=== PATIENT | male | born 1980 | race Caucasian/White ===

== ENCOUNTER 2016-05-18 02:35 | Emergency (ER) | payer OTHER ==
[~2016-05-18] VITALS: Ht 180.3 cm; Wt 157.9 kg
[~2016-05-18 02:35] MED LIST: ANCEF IV; AVELOX400 MG PO; BACTRIM DS 800/1 TAB PO; CRESTOR; FLAGYL500 M1 PO; GLUCOPHAGE1000 MG PO; GLUCOTROL5 MG PO; IBUPROFEN600 M1 PO; LEVEMIR100 U/ML SUBQ; MECLIZINE25 M3 PO; METFORMIN ER500 MG PO; METFORMIN1000 MG PO; METFORMIN500 MG PO; NORCO 10/325 MG1 TAB PO; NORCO 325 MG-51 TAB PO; NORCO 5/325 MG1 TAB PO; PRILOSEC40 MG PO; ULTRAM50 MG PO; VANCOCIN 11000 MG/20 IV; VICODIN ES 7501 TA1 PO; ZESTRIL10 MG PO; ZOCOR20 MG PO
[2016-05-18 02:53] VITALS: BP 125/83
--- NOTE | 2016-05-18 03:00 | NUR ---
PT TAKEN TO BED 5
--- NOTE | 2016-05-18 03:07 | NUR ---
36 Y/O HERE C/O R KNEE PAIN THAT BECAME WORSE X 4 DAYS. PER PT HE HAS HAD CHRONIC PAIN SINCE December, S/P FALL. ER AWARED, NO S/S OF DISTRESS AT THIS TIME.
--- NOTE | 2016-05-18 03:11 | NUR ---
Dr. Ireland evaluating patient at bedside.
[2016-05-18] MEDS ORDERED: HYDROcodone/APAP 5/325 MG 1 TAB TAB PO ONE (03:15)
[2016-05-18] MEDS ORDERED: KETOROLAC 30 MG/ML VIAL IM ONE (03:15)
--- NOTE | 2016-05-18 03:32 | NUR ---
X-Ray at bedside.
[2016-05-18 03:52] VITALS: BP 125/83
--- NOTE | 2016-05-18 03:52 | NUR ---
Patient discharged with v/s stable. Written and verbal after care instructions given and explained. Patient alert, oriented and verbalized understanding of instructions. Ambulatory WITH ASSISTIVE DEVICE, with steady gait. All questions addressed prior to discharge. ID band removed. Patient advised to follow up with PMD OR RETURN TO ER IF CONDITION WORSENS. Rx of NORCO, AND NAPROSYN given. Patient educated on indication of medication including possible reaction and side effects. Opportunity to ask questions provided and answered.
[2016-09-03] MEDS ORDERED: FLAGYL250 M1 PO (17:37)
[2016-09-03] MEDS ORDERED: CIPRO500 M1 PO (17:37)
== END 2016-05-18 03:52 | disposition home or self-care (01) ==
LOC: MED 02:35
DX: M25.561 Pain in right knee (principal); G89.29 Other chronic pain; J45.909 Unspecified asthma, uncomplicated; E11.9 Type 2 diabetes mellitus without complications; I10 Essential (primary) hypertension; Z88.0 Allergy status to penicillin
CPT/HCPCS: 73560; 96372; 99284; J1885; Q0092

== ENCOUNTER 2016-08-06 09:17 | Emergency (ER) | payer OTHER ==
[~2016-08-06] VITALS: Ht 177.8 cm; Wt 160.1 kg
[2016-08-06 09:28] VITALS: BP 141/85
--- NOTE | 2016-08-06 09:37 | NUR ---
Patient ambulated to bed 7 at this time.
--- NOTE | 2016-08-06 09:40 | NUR ---
36M BIB FAMILY C/O SHARP PAIN TO LEFT 3RD DIGIT, RADIATES TO LEFT HAND, 01/01 X 4 DAYS; PT STATES FINGER STARTED W/ INGROWN NAIL; DENIES TRAUMA TO SITE; SWELLING/REDNESS NOTED TO LEFT 3RD DIGIT AT THIS TIME; LEFT CAP REFILL < 2 SECONDS, LEFT RADIAL PULSE PALPABLE, NO LOSS OF SENSATION TO LEFT HAND AT THIS TIME; PT C/O NAUSEA, BUT DENIES V/D AT THIS TIME; ABDOMEN SOFT, NON-TENDER, ACTIVE BOWEL SOUNDS X 4 QUADRANTS; PT A&OX4, PERRLA, BL LUNG SOUNDS CLEAR, RR EVEN/UNLABORED, SKIN IS WARM/DRY/INTACT AT THIS TIME; STEADY GAIT; HX: DM, HTN, ANEMIA,NEUROPATHY, ARTHRITIS, DIVERTICULOSIS; PT RESTING IN BED W/ HOB ELEVATED AND IN LOWEST POSITION; POSITIONED FOR COMFORT; ER MD MADE AWARE OF STATUS. WILL CONTINUE TO MONITOR.
[2016-08-06] MEDS ORDERED: LIDOCAINE 1% 500 MG/50 ML VIAL INJ ONE (10:20)
[2016-08-06] MEDS ORDERED: HYDROcodone/APAP 5/325 MG 1 TAB TAB PO ONE (11:35)
[2016-08-06] MEDS ORDERED: IBUPROFEN 600 MG TAB PO ONE (11:35)
[2016-08-06] MEDS ORDERED: NEOMYCIN/POLYMYXIN/BACITRACIN 0.9 GM/1 PKT TP ONE (11:38)
[2016-08-06] MEDS ORDERED: CLINDAMYCIN 150 MG CAP PO ONE (11:50)
[2016-08-06] MEDS ORDERED: CEPHALEXIN 500 MG CAP PO ONE (11:50)
--- NOTE | 2016-08-06 12:50 | NUR ---
Patient discharged with v/s stable. Written and verbal after care instructions given and explained. Patient alert, oriented and verbalized understanding of instructions. Ambulatory with steady gait. All questions addressed prior to discharge. ID band removed. Patient advised to follow up with PMD. Rx of BACTRIM DS 800/160MG, NORCO 5/325MG, KEFLEX 500MG given. Patient educated on indication of medication including possible reaction and side effects. Opportunity to ask questions provided and answered.
[2016-08-06 12:51] VITALS: BP 139/82
[2016-09-03] MEDS ORDERED: CIPRO500 M1 PO (17:37)
[2016-09-03] MEDS ORDERED: FLAGYL250 M1 PO (17:37)
== END 2016-08-06 12:50 | disposition home or self-care (01) ==
LOC: MED 09:17
DX: L02.512 Cutaneous abscess of left hand (principal); E11.65 Type 2 diabetes mellitus with hyperglycemia; E66.01 Morbid (severe) obesity due to excess calories; I10 Essential (primary) hypertension; D64.9 Anemia, unspecified; M06.9 Rheumatoid arthritis, unspecified; Z88.0 Allergy status to penicillin; Z68.43 Body mass index [BMI] 50.0-59.9, adult
CPT/HCPCS: 10060; 82948; 99284; J2001

== ENCOUNTER 2016-08-31 23:36 | Inpatient (IN) | payer OTHER ==
[~2016-08-31] VITALS: Ht 180.3 cm; Wt 156.9 kg
[~2016-08-31 23:36] MED LIST changes: -ANCEF IV; -AVELOX400 MG PO; -BACTRIM DS 800/1 TAB PO; -CRESTOR; -FLAGYL500 M1 PO; -GLUCOPHAGE1000 MG PO; -GLUCOTROL5 MG PO; -IBUPROFEN600 M1 PO; -LEVEMIR100 U/ML SUBQ; +LISI10TA11 PO; -MECLIZINE25 M3 PO; +METF100028 PO; -METFORMIN ER500 MG PO; -METFORMIN1000 MG PO; -METFORMIN500 MG PO; -NORCO 10/325 MG1 TAB PO; -NORCO 325 MG-51 TAB PO; -NORCO 5/325 MG1 TAB PO; +OMEP40EC1 PO; -PRILOSEC40 MG PO; +TRAM50TA94 PO; -ULTRAM50 MG PO; -VANCOCIN 11000 MG/20 IV; -VICODIN ES 7501 TA1 PO; -ZESTRIL10 MG PO; -ZOCOR20 MG PO
[2016-08-31 23:51] VITALS: BP 139/91
--- NOTE | 2016-09-01 00:01 | NUR ---
BIB WHEELCHAIR TO ER BED 5
--- NOTE | 2016-09-01 00:08 | NUR ---
36Y/M PT. BIB FAMILY TO ED WITH C/O ABDOMINAL APIN X 2 DAYS. PT. STATES PAIN STARTED YESTERDAY WITH N/V/D, MULTIPLE TIME AND WEAKNESS. NO MEDICAL HX. AAO X4, AMBULATORY WITH W/C ASSIST. RESPIRATIONS ROOM AIR, EVEN AND UNLABORED. SKIN WARM AND DRY. BILATERAL LUNG CLEAR. C/O ABDOMINAL PAIN 12/02. N/V/D AT THIS TIME. VSS, ER MADE AWARE OF PT. STATUS. Addendum: 09/01/16 at 0459 by MEDSP FOR CLARIFICATION; HX. DM, HTN
[2016-09-01] MEDS ORDERED: NACL 0.9% 1,000 ML IV ONE ×2 (00:38→01:40)
[2016-09-01] MEDS ORDERED: DICYCLOMINE 20 MG/2 ML VIAL IM ONE (00:40)
[2016-09-01] MEDS ORDERED: ONDANSETRON 4 MG/2 ML VIAL IVP ONE (00:40)
[2016-09-01] MEDS ORDERED: MORPHINE SULFATE 4 MG/ML SYR IVP ONE ×3 (00:40→02:50)
[2016-09-01 01:05] LABS: CARBON DIOXIDE 27.9 mmol/L (21-32); CREATININE 0.8 mg/dL (0.6-1.3); POTASSIUM 3.9 mmol/L (3.5-5.1)
[2016-09-01 01:08] LABS: ALBUMIN 3.6 g/dL (3.4-5.0); TOTAL BILIRUBIN 0.6 mg/dL (0.0-1.0); TOTAL PROTEIN, SERUM 8.7 g/dL (6.4-8.2)
[2016-09-01 01:20] LABS: HEMATOCRIT 45.1 % (36-52); MEAN CORPUSCULAR HEMOGLOBIN 28 pg (27-31); MEAN CORPUSCULAR HGB CONC 33 g/dL (33-37); MEAN CORPUSCULAR VOLUME 85 fL (80-94); PLATELET COUNT (AUTO) 188 K/uL (140-450); RED BLOOD CELL COUNT(AUTO) 5.29 MIL/uL (4.20-6.10); RED CELL DISTRIBUTION WIDTH 11.9 % (11.6-13.7); WHITE BLOOD COUNT (AUTO) 11.2 K/uL (4.8-10.8)
[2016-09-01 01:26] LABS: BAND % (MANUAL) 2 % (0-8); EOSINOPHILS % (MANUAL) 1 % (0-4); LYMPHOCYTES % (MANUAL) 12 % (20-46); MONOCYTES % (MANUAL) 4 % (5-12); NEUTROPHILS % (MANUAL) 81 (43-65)
--- NOTE | 2016-09-01 02:50 | NUR ---
TAKE PT. TO CT
--- NOTE | 2016-09-01 03:00 | NUR ---
PT. BACK FROM CT
--- NOTE | 2016-09-01 03:07 | NUR ---
Patient appears to be resting comfortably in bed. Vital Signs within normal limits. Respirations even and unlabored.
[2016-09-01] MEDS ORDERED: HYDROmorphone 1 MG/ML AMP IVP ONE (04:15)
[2016-09-01] MEDS ORDERED: metroNIDAZOLE 500 MG/NS PREMIX 100 ML IV ONE (04:45)
[2016-09-01] MEDS ORDERED: LEVOFLOXACIN 750 MG/D5W PREMIX 150 ML IV ONE (04:45)
--- NOTE | 2016-09-01 04:57 | NUR ---
Patient appears to be resting comfortably in bed. Vital Signs within normal limits. Respirations even and unlabored.
[2016-09-01] MEDS ORDERED: LORazepam 2 MG/ML VIAL IVP PRN (05:10)
[2016-09-01] MEDS ORDERED: MORPHINE SULFATE 2 MG/ML SYR IVP PRN (05:10)
[2016-09-01] MEDS ORDERED: ALBUTEROL 0.083% 2.5 MG/3 ML NEBU IH PRN (05:10)
[2016-09-01] MEDS ORDERED: ACETAMINOPHEN 325 MG TAB PO PRN (05:10)
[2016-09-01] MEDS ORDERED: ONDANSETRON 4 MG/2 ML VIAL IVP PRN (05:10)
[2016-09-01] MEDS ORDERED: HYDROcodone/APAP 5/325 MG 1 TAB TAB PO PRN (05:10)
--- NOTE | 2016-09-01 05:33 | NUR ---
Patient will be admitted to care of . Admited to MED/SURG. Will go to [id number]. Belongings list completed. Report to VLADIMIR MARTINEZ.
--- NOTE | 2016-09-01 05:45 | NUR ---
PATIENT ADMITTED TO THE UNIT FROM ED, PATIENT ARRIVED VIA WHEELCHAIR, PATIENT ABLE TO AMBULATE TO BED, PATIENT IS AAOX4 ON ROOM AIR, NO SOB OR SIGN OF DISTRESS, IV TO LEFT AC PATENT AND INTACT, SKIN INTACT WITH DISCOLORATION NOTED TO LOWER ABDOMINAL FOLD. PATIENT STATES HE IS HAVING ABDOMINAL PAIN 10/10 WILL MEDICATE PER MD ORDER. ORIENTED PATIENT TO ROOM AND CALL LIGHT, DISCUSSED PLAN OF CARE WITH PATIENT, PATIENT VERBALIZED UNDERSTANDING, CALL LIGHT WITHIN REACH, SAFETY MEASURES CHECKED, WILL CONTINUE TO MONITOR.
[2016-09-01] MEDS ORDERED: PIPER/TAZO 3.375GM/D5W PREMIX 50 ML IV SCH (06:00)
[2016-09-01] MEDS: NACL 0.9% 1,000 ML IV SCH ×2 (06:07→15:08)
[2016-09-01 06:11] VITALS: BP 126/79
--- NOTE | 2016-09-01 06:49 | NUR ---
PATIENT HAS BEEN SCREENED AND CATEGORIZED HIGH NUTRITION RISK. PATIENT WILL BE SEEN WITHIN 1-2 DAYS OF ADMISSION. 09/01/16-09/02/16 ISA ESQUIVEL MS, RDN
--- NOTE | 2016-09-01 07:30 | NUR ---
RECEIVED PT REPORT AT BEDSIDE FROM NIGHT NURSE. PT IS AAOX4 AND DENIES PAIN. PT HAS A NOTED IV SITE ON THE L AC. PT SKIN IS INTACT WITH NOTED SKIN DISCOLORATION ON THE ABD FOLD. PT SHOWS NO S/S OF DISTRESS NOTED ON ROOM AIR. PT BED IS LOWERED WITH CALL LIGHT WITHIN REACH. PT VERBALIZED UNDERSTANDING OF POC FOR TODAY. WILL CONTINUE TO MONITOR.
--- NOTE | 2016-09-01 07:33 | NUR ---
ENDORSED PATIENT TO DAY RN AT BEDSIDE, IV LEVAQUIN STILL INFUSING, ZOSYN WILL BE ADMINISTERED LATE, DAY NURSE AWARE, PATIENT IN STABLE CONDITION.
--- NOTE | 2016-09-01 07:50 | NUR ---
PT STATES HE FEEL HOT. GAVE PT ICE PACK AND PT HAS FAN AT BEDSIDE.
[2016-09-01 08:00] VITALS: BP 139/86
--- NOTE | 2016-09-01 08:10 | NUR ---
SPOKE WITH DR BARRIENTOS REGARDING PT NAUSEA, PAIN, AND ANTIBIOTIC MEDICATION. PT STATES NAUSEA MEDICATION ZOFRAN DOES NOT HELP HIM AND HIS PAIN MEDICATION MORPHINE DID NOT HELP HIM. ALSO, PATIENT IS ALLERGIC TO PENICILLINS THEREFORE COULD NOT GIVE SCHEDULED ZOSYN. DR. BARRIENTOS GAVE ORDERS TO GIVE PHENERGAN 25 MG IV Q6H FOR NAUSEA/VOMITING, DILAUDID .5 MG Q3H PRN FOR SEVER PAIN, LEVAQUIN 750 MG Q DAILY, AND FLAGYL 500 MG IV Q8H. WILL PLACE ORDERS.
[2016-09-01] MEDS: PROMETHAZINE 25 MG/ML VIAL IVP PRN ×2 (10:00→18:26)
[2016-09-01] MEDS: HYDROmorphone 1 MG/ML AMP IVP PRN ×4 (10:00→22:30)
--- NOTE | 2016-09-01 10:00 | NUR ---
ADMINISTERED SCHEDULED MEDICATIONS. PT C/O PAIN AND NAUSEA. ADMINISTERED PRN PAIN AND NAUSEA MEDICATION. PT TOLERATED WELL. PT SHOWS NO S/S OF DISTRESS ON ROOM AIR. PT BED IS LOWERED WITH CALL LIGHT WITHIN REACH.
[2016-09-01] MEDS: ENOXAPARIN 40 MG/0.4 ML SYR SUBQ SCH (10:11)
--- NOTE | 2016-09-01 10:30 | NUR ---
RECEIVED PT IN STABLE CONDITION FROM AM NURSE. AWAKE,ALERT AND ORIENTED X4. MED SURG PT. NO C/O ANY PAIN AT THIS TIME. WITH IVF INFUSING WELL ON THE LT AC#18. CLEAR AND PATENT. AMBULATORY TO BATHROOM. PLAN OF CARE DISCUSSED AND VERBALIZED UNDERSTANDING. MADE AWARE OF NEED FOR STOOL SPECIMEN . VERBALIZED UNDERSTANDING. CALL LIGHT URINAL WITHIN EASY REACH. WILL CONTINUE TO MONITOR. Addendum: 09/01/16 at 2004 by Sona Balderas RN CANCEL ABOVE NOTES. CAREGIVER MISTAKE.
--- NOTE | 2016-09-01 10:34 | NUR ---
SPOKE WITH DR BARRIENTOS RECOMMENDING TO ORDER ACCU CHECKS DUE TO PT HISTORY OF DM. MD ORDERED ACCU CHECKS QACHS AND LOW DOSE INSULIN SLIDING SCALE. MD ORDERED TO CHANGE DIET TO CLEAR LIQUIDS DUE TO PT NAUSEA. WILL PLACE ORDERS PER MD.
--- NOTE | 2016-09-01 10:46 | NUR ---
09/01/16 INITIAL ASSESSMENT COMPLETED PLEASE REFER TO NUTRITION ASSESSMENT UNDER CARE ACTIVITY FOR ESTIMATED NUTRITIONAL NEEDS. RD RECOMMENDATIONS: 1. RECOMMEND CCHO 60 GM DIET D/T ELEVATED BG AND HX DM. 2. RD WILL F/U 3-5 DAYS; MODERATE RISK. ISA ESQUIVEL MS, RDN
[2016-09-01] MEDS: BLOOD GLUCOSE MONITORING 1 DEV DEV FS SCH ×3 (11:30→20:23)
--- NOTE | 2016-09-01 12:45 | NUR ---
PT IN BED SLEEPING AND SHOWS NO S/S OF DISTRESS ON ROOM AIR.
[2016-09-01] MEDS: metroNIDAZOLE 500 MG/NS PREMIX 100 ML IV SCH ×2 (13:30→20:29)
[2016-09-01] MEDS: INSULIN LISPRO SLIDING SCALE 100 UNITS/ML VIAL SUBQ PRN ×3 (13:35→20:27)
--- NOTE | 2016-09-01 15:00 | NUR ---
PT C/O OF PAIN 8/10. 10 BEING THE WORST PAIN. ADMINISTERED PRN PAIN MEDICATION. PT FELT WARM TO THE TOUCH. PT TEMPERATURE IS 100.4 F. WILL ADMINISTER TYLENOL 650MG PO FOR FEVER OF 100.4. ALSO PROVIDED COOLING MEASURES TO PT. WILL CONTINUE TO MONITOR.
[2016-09-01 15:08] VITALS: BP 131/93
[2016-09-01 16:00] VITALS: BP 141/83
--- NOTE | 2016-09-01 16:15 | NUR ---
SENT STOOL CULTURE TO LAB. PT NEEDS HAVE BEEN MET. PT IS IN ROOM NOW SLEEPING WITH NO S/S OF DISTRESS ON ROOM AIR.
--- NOTE | 2016-09-01 17:40 | NUR ---
PT IN BED RESTING AND SHOWS NO S/S OF DISTRESS ON ROOM AIR.
--- NOTE | 2016-09-01 18:30 | NUR ---
PT IS IN BED RESTING WATCHING TV WITH NO S/S OF DISTRESS ON ROOM AIR. PT IS AAOX4 TO PERSON, PLACE, DATE, AND SITUATION. PT C/O PAIN AND NAUSEA. ADMINISTERED PRN PAIN MEDICATION AND NAUSEA MEDICATION. PT TOLERATED WELL. IV ON THE R AC IS PATENT AND INTACT WITH IVF'S RUNNING. PT NEEDS HAVE BEEN MET. PT BED IS LOWERED WITH CALL LIGHT WITHIN REACH. WILL ENDORSE TO THE NIGHT NURSE.
--- NOTE | 2016-09-01 18:34 | NUR ---
PT IS IN BED RESTING WITH NO S/S OF DISTRESS ON ROOM AIR. PT IS AAOX3 TO PERSON, PLACE, AND DATE. PT IS ASKING FOR PAIN MEDICATION HOWEVER PT IS AWARE OF PRN PAIN MEDICATION SCHEDULE NOT AVAILABLE. PT AWARE PRN PAIN MEDICATION PERCOCET 5/325 MG WILL AVAILABLE AT 20:12. IV ON THE H IS PATENT AND INTACT. IV ON THE ANTERIOR CHEST IS SALINE LOCKED. DRESSING WAS CHANGED ON THE LEFT MEDIAL ANKLE TODAY AFTER EXCISIONAL DEBRIDEMENT. DRESSING IS CLEAN DRY AND INTACT. PT BED IS LOWERED WITH CALL LIGHT WITHIN REACH. WILL ENDORSE TO THE NIGHT NURSE. Addendum: 09/01/16 at 1840 by Desiree Mendoza RN WRONG PATIENT
--- NOTE | 2016-09-01 19:15 | NUR ---
GAVE REPORT TO NIGHT NURSE. PT ENDORSED IN STABLE CONDITION.
--- NOTE | 2016-09-01 19:30 | NUR ---
RECEIVED PT IN STABLE CONDITION FROM AM NURSE. AWAKE,ALERT AND ORIENTED X4. MED SURG PT. NO C/O ANY PAIN AT THIS TIME. WITH IVF INFUSING WELL ON THE LT AC#18. CLEAR AND PATENT. AMBULATORY TO BATHROOM. PLAN OF CARE DISCUSSED AND VERBALIZED UNDERSTANDING. MADE AWARE OF NEED FOR STOOL SPECIMEN . VERBALIZED UNDERSTANDING. CALL LIGHT URINAL WITHIN EASY REACH. WILL CONTINUE TO MONITOR
--- NOTE | 2016-09-01 20:27 | NUR ---
BLOOD SUGAR WAS CHECKED RESULT 205. INSULIN COVERAGE GIVNE SUBQ. PROVIDED WITH SOME APPLE JUICE. WILL COTINUE TO MONITOR.
--- NOTE | 2016-09-01 21:15 | NUR ---
MADE ROUNDS . PT IS SLEEPING WELL AT THSI TIME. NO S/S OF ANY DISCOMFORT NOTED.
--- NOTE | 2016-09-01 22:30 | NUR ---
AWAKE AND C/O PAIN .MEDICATED ORDERED. WILL CONTINUE TO MONITOR.
--- NOTE | 2016-09-01 23:30 | NUR ---
HAD A SCANTY SOFT BROWN STOOL. NOT DIARRHEA. STILL UNABLE TO COLLECT STOOL FOR S CIFF
[2016-09-01 23:50] VITALS: BP 151/85
[2016-09-02] MEDS: NACL 0.9% 1,000 ML IV SCH ×5 (01:08→23:15)
--- NOTE | 2016-09-02 01:30 | NUR ---
MADE ROUNDS. PT SLEEPING. NO S/S OF ANY DISCOMFORT NOR PAIN NOTED.
[2016-09-02] MEDS: HYDROmorphone 1 MG/ML AMP IVP PRN ×7 (02:51→23:51)
--- NOTE | 2016-09-02 03:30 | NUR ---
ASLEEP. NO S/S OF ANY DISCOMFORT NOTED. WILL CONTINUE TO MONITOR.
[2016-09-02] MEDS: metroNIDAZOLE 500 MG/NS PREMIX 100 ML IV SCH ×3 (04:30→20:25)
[2016-09-02] MEDS: BLOOD GLUCOSE MONITORING 1 DEV DEV FS SCH ×4 (06:08→20:30)
[2016-09-02] MEDS: INSULIN LISPRO SLIDING SCALE 100 UNITS/ML VIAL SUBQ PRN ×4 (06:09→20:34)
[2016-09-02 06:51] LABS: BASOPHILS # (AUTO) 0.3 K/uL (0.00-0.22); EOSINOPHILS # (AUTO) 0.2 K/uL (0-0.4); EOSINOPHILS % (AUTO) 2.2 % (0.0-4.0); HEMATOCRIT 40.3 % (36-52); HEMOGLOBIN 13.6 g/dL (12.0-18.0); LYMPHOCYTES # (AUTO) 2.1 K/uL (2.0-11.5); LYMPHOCYTES % (AUTO) 27.9 % (20.5-51.1); MEAN CORPUSCULAR HEMOGLOBIN 29 pg (27-31); MEAN CORPUSCULAR HGB CONC 34 g/dL (33-37); MEAN CORPUSCULAR VOLUME 84 fL (80-94); MONOCYTES # (AUTO) 0.8 K/uL (0.8-1.0); MONOCYTES % (AUTO) 10.4 % (1.7-9.3); NEUTROPHILS # (AUTO) 4.2 K/uL (1.8-7.7); NEUTROPHILS % (AUTO) 55.5 % (42.2-75.2); PLATELET COUNT (AUTO) 172 K/uL (140-450); RED BLOOD CELL COUNT(AUTO) 4.78 MIL/uL (4.20-6.10); RED CELL DISTRIBUTION WIDTH 11.8 % (11.6-13.7); WHITE BLOOD COUNT (AUTO) 7.6 K/uL (4.8-10.8)
[2016-09-02 07:08] LABS: ANION GAP 9.2 (8-16); CALCIUM 8.3 mg/dL (8.5-10.1); CARBON DIOXIDE 29.1 mmol/L (21-32); CREATININE 0.8 mg/dL (0.6-1.3); MAGNESIUM 1.7 mg/dL (1.8-2.4); POTASSIUM 3.3 mmol/L (3.5-5.1); TOTAL BILIRUBIN 0.4 mg/dL (0.0-1.0); TOTAL PROTEIN, SERUM 7.3 g/dL (6.4-8.2)
--- NOTE | 2016-09-02 07:15 | NUR ---
ENDORSED PT IN STABLE CONDITION TO AM NURSE.
[2016-09-02 07:58] LABS: MAGNESIUM 1.6 mg/dL (1.8-2.4); PHOSPHORUS 2.9 mg/dL (2.5-4.9)
[2016-09-02 08:00] VITALS: BP 129/71
[2016-09-02] MEDS: LEVOFLOXACIN 750 MG/D5W PREMIX 150 ML IV SCH (09:04)
[2016-09-02] MEDS: ENOXAPARIN 40 MG/0.4 ML SYR SUBQ SCH (09:07)
--- NOTE | 2016-09-02 09:09 | NUR ---
DUE MEDICATIONS GIVEN. PT TOLERATED WELL. PT C/O ABD 11/01 WILL MEDICATE PER MD ORDERS. ALL NEEDS. CALL LIGHT WITHIN REACH. WILL CONTINUE TO MONITOR.
[2016-09-02] MEDS ORDERED: POTASSIUM CHLORIDE 10 MEQ TABER PO SCH (10:32)
[2016-09-02] MEDS ORDERED: MAG SULF 2000 MG/WATER PREMIX 50 ML IV SCH (11:00)
--- NOTE | 2016-09-02 11:38 | NUR ---
DUE MEDICATIONS GIVEN, PT CURRENTLY RESTING IN BED. ALL NEEDS MET. CALL LIGHT WITHIN REACH. WILL CONTINUE TO MONITOR.
[2016-09-02 16:00] VITALS: BP 139/92
--- NOTE | 2016-09-02 16:45 | NUR ---
PT C/O OF PAIN, WILL MEDICATE PER MD ORDERS. ALL NEEDS MET. CALL LIGHT WITHIN REACH. WILL CONTINUE TO MONITOR. FAMILY AT BEDSIDE.
--- NOTE | 2016-09-02 19:25 | NUR ---
ENDORSED PLAN OF CARE TO [facility] NURSE, PT IN STABLE CONDITION.
--- NOTE | 2016-09-02 19:30 | NUR ---
RECEIVED PT IN STABLE CONDITION FROM AM NURSE. AWAKE,ALERT AND ORIENTED X4. MED SURG PT. WITH NO C/O PAIN AT THIS TIME. DENIES ANY DIARRHEA . FAMILY MEMBERS AT BEDSIDE. AMBULATORY. WITH IVF INFUSING WELL ON THE LT AC #18. CLEAR AND PATENT. CARE DISCUSSED AND VERBALIZED UNDERSTANDING. BED ON LOW [POSITION, SIDE RAILS UP X2. CALL LIGHT PLACED WITHIN EASY REACH. WILL CONTINUE TO MONITOR.
--- NOTE | 2016-09-02 20:34 | NUR ---
BLOOD SUGAR WAS CHECKED RESULT 189. INSULIN COVERAGE GIVEN SUBQ. PROVIDED WITH APPLE JUICE.
[2016-09-02] MEDS ORDERED: TEMAZEPAM 15 MG CAP PO SCH (21:00)
--- NOTE | 2016-09-02 22:00 | NUR ---
STILL AWAKE. AMBULATING ON THE HALLWAY. NO S/S FO ANY DISCOMFORT NOTED.
[2016-09-02 23:44] VITALS: BP 150/75
--- NOTE | 2016-09-03 01:00 | NUR ---
IV ACCESS ON THE LT AC INFILTRATED. DISCONTINUE. STARTED A NEW IV ACCESS ON THE RT HAND #22. CLEAR AND PATENT. IVF INFUSING WELL ON THIS NEW IV SITE.
--- NOTE | 2016-09-03 02:30 | NUR ---
SLEEPING AT THIS TIME. NO S/S FO PEEWEE DISCOMFORT NOTED. WILL CONTINUE TO MONITOR.
[2016-09-03] MEDS: metroNIDAZOLE 500 MG/NS PREMIX 100 ML IV SCH ×2 (04:27→12:01)
--- NOTE | 2016-09-03 04:46 | NUR ---
SLEEPING AT THIS TIME. NO S/S OF ANY DISCOMFORT NOTED.
[2016-09-03] MEDS: BLOOD GLUCOSE MONITORING 1 DEV DEV FS SCH ×4 (06:08→15:59)
[2016-09-03 06:12] LABS: BASOPHILS # (AUTO) 0.1 K/uL (0.00-0.22); BASOPHILS % (AUTO) 2.2 % (0.0-2.0); EOSINOPHILS # (AUTO) 0.2 K/uL (0-0.4); EOSINOPHILS % (AUTO) 2.5 % (0.0-4.0); HEMATOCRIT 43.1 % (36-52); HEMOGLOBIN 14.3 g/dL (12.0-18.0); LYMPHOCYTES # (AUTO) 1.6 K/uL (2.0-11.5); LYMPHOCYTES % (AUTO) 23.9 % (20.5-51.1); MEAN CORPUSCULAR HEMOGLOBIN 28 pg (27-31); MEAN CORPUSCULAR HGB CONC 33 g/dL (33-37); MEAN CORPUSCULAR VOLUME 84 fL (80-94); MONOCYTES # (AUTO) 0.6 K/uL (0.8-1.0); MONOCYTES % (AUTO) 8.5 % (1.7-9.3); NEUTROPHILS # (AUTO) 4.3 K/uL (1.8-7.7); NEUTROPHILS % (AUTO) 62.9 % (42.2-75.2); PLATELET COUNT (AUTO) 199 K/uL (140-450); RED BLOOD CELL COUNT(AUTO) 5.11 MIL/uL (4.20-6.10); RED CELL DISTRIBUTION WIDTH 11.9 % (11.6-13.7); WHITE BLOOD COUNT (AUTO) 6.8 K/uL (4.8-10.8)
--- NOTE | 2016-09-03 06:20 | NUR ---
BLOOD SUGAR CHECKED RESULT 115. Addendum: 09/03/16 at 0726 by Sona Balderas RN CANCEL ABOVE NOTES. WRONG PT.
[2016-09-03] MEDS: INSULIN LISPRO SLIDING SCALE 100 UNITS/ML VIAL SUBQ PRN ×4 (06:40→16:02)
--- NOTE | 2016-09-03 06:40 | NUR ---
BLOOD SUGAR THIS AM 161. INSULIN COVERAGE GIVEN SUBQ.
[2016-09-03 06:45] LABS: ANION GAP 11.8 (8-16); CALCIUM 8.6 mg/dL (8.5-10.1); CARBON DIOXIDE 28.3 mmol/L (21-32); CREATININE 0.8 mg/dL (0.6-1.3); POTASSIUM 3.1 mmol/L (3.5-5.1)
[2016-09-03 06:49] LABS: MAGNESIUM 1.8 mg/dL (1.8-2.4); PHOSPHORUS 3.9 mg/dL (2.5-4.9)
[2016-09-03] MEDS: NACL 0.9% 1,000 ML IV SCH ×2 (07:08→16:20)
--- NOTE | 2016-09-03 07:27 | NUR ---
ENDORSED PT IN STABLE CONDITION TO AM NURSE.
--- NOTE | 2016-09-03 07:28 | NUR ---
PT ALERT AND ORIENTED X4. BREATHING EVENLY AND UNLABORED. NO SIGNS OF ACUTE DISTRESS. SKIN IS WARM AND DRY. NO EPISODES OF ANY NAUSEA OR VOMITING. ABLE TO VOID INDEPENDENTLY. NO C/O ANY PAIN OR DISCOMFORT AT THIS TIME. ALL NEEDS ATTENDED, SAFETY PRECAUTIONS MAINTAINED. CALL LIGHT WITHIN REACH.
[2016-09-03 07:46] VITALS: BP 131/78
[2016-09-03] MEDS: LEVOFLOXACIN 750 MG/D5W PREMIX 150 ML IV SCH (08:45)
[2016-09-03] MEDS: ENOXAPARIN 40 MG/0.4 ML SYR SUBQ SCH (08:50)
[2016-09-03] MEDS: PROMETHAZINE 25 MG/ML VIAL IVP PRN (10:17)
[2016-09-03] MEDS: HYDROmorphone 1 MG/ML AMP IVP PRN ×2 (10:18→15:54)
--- NOTE | 2016-09-03 11:00 | NUR ---
CM NOTE INITIAL REVIEW SENT TO [facility] [phone]
[2016-09-03 16:00] VITALS: BP 151/100
--- NOTE | 2016-09-03 17:04 | NUR ---
PAGED DR. BARRIENTOS FOR F/U ON PT'S CURRENT LAB RESULT. K-3.1. AWAITING FOR RESPONSE.
[2016-09-03] MEDS ORDERED: METR250T2 PO (17:37)
[2016-09-03] MEDS ORDERED: CIPR500T4 PO (17:37)
[2016-09-03] MEDS ORDERED: POTASSIUM CHLORIDE 10 MEQ TABER PO SCH (17:40)
--- NOTE | 2016-09-03 17:40 | NUR ---
SPOKE WITH DR. BARRIENTOS, RECEIVED ORDER K DUR 40MEQ PO X1. NOTED AND CARRIED OUT.
--- NOTE | 2016-09-03 17:46 | NUR ---
WAS SEEN BY DR. BARRIENTOS, RECEIVED ORDER, JULY D/C HOME TODAY. NOTED AND CARRIED OUT.
--- NOTE | 2016-09-03 18:57 | NUR ---
PT AWAKE AND RESPONSIVE, NO SIGNS OF ACUTE DISTRESS. MAY D/C HOME TODAY. EDUCATED TO F/U WITH PCP IN 1 WEEK. DISCHARGE MEDS REVIEWED INDICATIONS AND SIDE EFFECTS. PT VERBALIZED UNDERSTANDING. IV LINE AND WRIST BANDS REMOVED. PERSONAL BELONGINGS WITH PT UPON DISCHARGE. PICKED UP BY MOTHER, ESCORTED TO FRONT LOBBY. WILL GO HOME WITH PRIVATE AUTO.
== END 2016-09-03 18:59 | disposition home or self-care (01) | DRG 244 ==
LOC: MED 23:36 → MTU 09-01 05:12
PROVIDERS: ADMIT Internal Medicine Pulmonary Disease; ATTEND Internal Medicine Pulmonary Disease
DX: K57.92 Diverticulitis of intestine, part unspecified, without perforation or abscess without bleeding (principal); E83.42 Hypomagnesemia; I10 Essential (primary) hypertension; J45.909 Unspecified asthma, uncomplicated; E11.9 Type 2 diabetes mellitus without complications; E86.9 Volume depletion, unspecified; K21.9 Gastro-esophageal reflux disease without esophagitis; Z88.0 Allergy status to penicillin; E87.6 Hypokalemia; Z79.84 Long term (current) use of oral hypoglycemic drugs
CPT/HCPCS: 36415; 80048; 80053; 82948; 83690; 83735; 84100; 85025; 87045; 87070; 87081; 96361; 96365; 96372; 96375; 96376; 99285; J0500; J1170; J1650; J1815; J1956; J2060; J2270; J2405; J2543; J2550; J3475; J3490; J7030

== ENCOUNTER 2016-12-27 21:18 | Emergency (ER) | payer OTHER ==
[~2016-12-27] VITALS: Ht 177.8 cm; Wt 151.7 kg
[~2016-12-27 21:18] MED LIST changes: +CIPR500T4 PO; +METR250T2 PO; +TRAM50TA1 PO; -TRAM50TA94 PO
[2016-12-27 21:25] VITALS: BP 139/78
--- NOTE | 2016-12-27 21:42 | NUR ---
PT.AMBULATES TO ER BED 6
--- NOTE | 2016-12-27 21:50 | NUR ---
Patient being evaluated by DR. EMERY at bedside.
[2016-12-27] MEDS ORDERED: ONDANSETRON 4 MG/2 ML VIAL IVP ONE (22:05)
[2016-12-27] MEDS ORDERED: fentaNYL 0.05 MG/ML VIAL IVP ONE (22:05)
[2016-12-27] MEDS ORDERED: NACL 0.9% 1,000 ML IV ONE (22:05)
--- NOTE | 2016-12-27 22:20 | NUR ---
REPORT GIVEN TO VLADIMIR FREIRE, 18GA IV RT A/C DONE, IVP/IVF MEDS GIVEN-NADR AT THIS TIME. PAIN NOW 06/01. PT SENT TO CT VIA BED WITH APPRENTICE COOK AAOX4. AT BEDSIDE
--- NOTE | 2016-12-27 22:28 | NUR ---
36Y/M PT. PRESENTS TO ED WITH C/O ABDOMINAL AND BACK PAIN X 4 DAYS. ALSO STATES N/V, NO FEVER. HX. DIVERTICULITIS. AAO X4, AMBULATORY EITH STEADY GAIT. RESPIRATION ROOM AIR, EVEN AND UNLABORED. ABDOMEN SOFT AND NON-TENDER. C/O PAIN 9/10. VSS, ER MADE AWARE OF PT. STATUS.
[2016-12-27 22:30] LABS: BASOPHILS # (AUTO) 0.3 K/uL (0.00-0.22); BASOPHILS % (AUTO) 3.1 % (0.0-2.0); EOSINOPHILS # (AUTO) 0.3 K/uL (0-0.4); EOSINOPHILS % (AUTO) 2.8 % (0.0-4.0); HEMATOCRIT 42.8 % (36-52); LYMPHOCYTES # (AUTO) 2.7 K/uL (2.0-11.5); LYMPHOCYTES % (AUTO) 28.4 % (20.5-51.1); MEAN CORPUSCULAR HEMOGLOBIN 28 pg (27-31); MEAN CORPUSCULAR HGB CONC 33 g/dL (33-37); MEAN CORPUSCULAR VOLUME 87 fL (80-94); MONOCYTES # (AUTO) 0.9 K/uL (0.8-1.0); NEUTROPHILS # (AUTO) 5.2 K/uL (1.8-7.7); NEUTROPHILS % (AUTO) 55.7 % (42.2-75.2); PLATELET COUNT (AUTO) 203 K/uL (140-450); RED BLOOD CELL COUNT(AUTO) 4.93 MIL/uL (4.20-6.10); RED CELL DISTRIBUTION WIDTH 12.3 % (11.6-13.7); WHITE BLOOD COUNT (AUTO) 9.4 K/uL (4.8-10.8)
[2016-12-27 22:39] LABS: ANION GAP 9.9 (8-16); CARBON DIOXIDE 31.8 mmol/L (21-32); CREATININE 0.9 mg/dL (0.7-1.3); POTASSIUM 3.7 mmol/L (3.5-5.1)
--- NOTE | 2016-12-27 22:41 | NUR ---
TAKE PT. TO CT
[2016-12-27 22:45] LABS: ALBUMIN 3.7 g/dL (3.4-5.0); TOTAL BILIRUBIN 0.5 mg/dL (0.0-1.0)
[2016-12-27 22:51] LABS: PROTHROMBIN TIME 10.1 secs (10.8-13.4)
--- NOTE | 2016-12-27 22:54 | NUR ---
PT. BACK FROM CT
--- NOTE | 2016-12-27 23:45 | NUR ---
Pupils equal and reactive to light bilaterally. No facial droop noted. No smile deficit noted. Speech normal for patient. Patient is alert and oriented to person, place, time and event. Bilateral hand writing tutor equal. Bilateral foot push equal.
[2016-12-28 00:15] VITALS: BP 133/75
--- NOTE | 2016-12-28 00:15 | NUR ---
Patient discharged with v/s stable. Written and verbal after care instructions given and explained. Patient alert, oriented and verbalized understanding of instructions. Ambulatory with steady gait. All questions addressed prior to discharge. ID band removed. Patient advised to follow up with PMD. Rx of zofran 4mg, flagyl 500mg, motrin 800mg,norco 5mg-325mg, cipro 500mg bid given. Patient educated on indication of medication including possible reaction and side effects. Opportunity to ask questions provided and answered.
== END 2016-12-28 00:15 | disposition home or self-care (01) ==
LOC: MED 21:18
DX: K57.92 Diverticulitis of intestine, part unspecified, without perforation or abscess without bleeding (principal); J45.909 Unspecified asthma, uncomplicated; E11.9 Type 2 diabetes mellitus without complications; I10 Essential (primary) hypertension; Z88.0 Allergy status to penicillin
CPT/HCPCS: 36415; 74176; 80053; 81002; 82948; 85025; 85610; 85730; 96361; 96374; 96375; 99285; J2405; J3010; J7030

== ENCOUNTER 2017-03-15 10:07 | Emergency (ER) | payer OTHER ==
[~2017-03-15] VITALS: Ht 177.8 cm; Wt 145.1 kg
[2017-03-15 10:12] VITALS: BP 135/88
--- NOTE | 2017-03-15 10:17 | NUR ---
PT TRIAGED, PT WAITING FOR ER BED. ERMD NOTIFIED OF PATIENT STATUS.
[2017-03-15] MEDS ORDERED: LORazepam 1 MG TAB PO ONE (11:25)
--- NOTE | 2017-03-15 11:37 | NUR ---
MEDICATED WRITTEN--APPEARS AGGITATED, SPOUSE AT BEDSIDE
--- NOTE | 2017-03-15 11:53 | NUR ---
PT STATES HE FEELS BETTER--LESS ANXIOUS Patient discharged with v/s stable. Written and verbal after care instructions given and explained. Patient alert, oriented and verbalized understanding of instructions. Ambulatory with steady gait. All questions addressed prior to discharge. ID band removed. Patient advised to follow up with PMD. Rx of AMBIEN/ XANAX given. Patient educated on indication of medication including possible reaction and side effects. Opportunity to ask questions provided and answered.
[2017-03-15 11:55] VITALS: BP 134/76
== END 2017-03-15 11:55 | disposition home or self-care (01) ==
LOC: MED 10:07
DX: F41.9 Anxiety disorder, unspecified (principal); G47.00 Insomnia, unspecified; E11.9 Type 2 diabetes mellitus without complications; I10 Essential (primary) hypertension; Z79.899 Other long term (current) drug therapy; Z88.0 Allergy status to penicillin; Z88.8 Allergy status to other drugs, medicaments and biological substances; Z91.018 Allergy to other foods
CPT/HCPCS: 99284

== ENCOUNTER 2017-04-16 13:54 | Inpatient (IN) | payer OTHER ==
[~2017-04-16] VITALS: Ht 175.3 cm; Wt 149.7 kg
[2017-04-16 14:12] VITALS: BP 144/83
--- NOTE | 2017-04-16 15:16 | NUR ---
PT AMBULATED TO BED 10.
--- NOTE | 2017-04-16 15:20 | NUR ---
37M BIB FAMILY C/O LLQ ABDOMINAL PAIN X 2 DAYS. PT STATES WAS SEEN AT [facility] 04/01/17, DX WITH DIVERTICULITIS, BUT PT ANTIBIOTICS AND PAIN MEDICATION PRESCRIBED.HX: DIVERTICULITIS, NEUROPATHY, ANEMIA, HTN, DM.
[2017-04-16] MEDS ORDERED: MORPHINE SULFATE 4 MG/ML SYR IVP ONE (15:40)
[2017-04-16] MEDS ORDERED: NACL 0.9% 1,000 ML IV ONE ×2 (15:40→20:00)
[2017-04-16] MEDS ORDERED: ONDANSETRON 4 MG/2 ML VIAL IVP ONE (15:40)
[2017-04-16 16:01] LABS: BASOPHILS # (AUTO) 0.4 K/uL (0.00-0.22); EOSINOPHILS # (AUTO) 0.3 K/uL (0-0.4); HEMATOCRIT 44.6 % (36-52); HEMOGLOBIN 14.9 g/dL (12.0-18.0); LYMPHOCYTES # (AUTO) 2.9 K/uL (2.0-11.5); MEAN CORPUSCULAR HEMOGLOBIN 28 pg (27-31); MEAN CORPUSCULAR HGB CONC 33 g/dL (33-37); MEAN CORPUSCULAR VOLUME 85 fL (80-94); MONOCYTES # (AUTO) 0.6 K/uL (0.8-1.0); NEUTROPHILS # (AUTO) 6.2 K/uL (1.8-7.7); PLATELET COUNT (AUTO) 214 K/uL (140-450); RED BLOOD CELL COUNT(AUTO) 5.26 MIL/uL (4.20-6.10); RED CELL DISTRIBUTION WIDTH 11.9 % (11.6-13.7); WHITE BLOOD COUNT (AUTO) 10.4 K/uL (4.8-10.8)
[2017-04-16] MEDS ORDERED: MORPHINE SULFATE 4 MG/ML SYR ONE (16:02)
[2017-04-16] MEDS ORDERED: ONDANSETRON 4 MG/2 ML VIAL ONE (16:03)
[2017-04-16 16:07] LABS: BILIRUBIN,URINE 2+ (NEGATIVE); BLOOD, URINE TRACE-I (NEGATIVE); COLOR,URINE YELLOW (YELLOW); LEUKOCYTE ESTERASE ,URINE 1+ (NEGATIVE); NITRITE, URINE NEGATIVE (NEGATIVE); UGLUCOSE NEGATIVE (NEGATIVE)
[2017-04-16 16:08] LABS: APPEARANCE,URINE HAZY (CLEAR)
[2017-04-16 16:23] LABS: RBC,URINE 0-5 (RARE) /HPF (0-5)
[2017-04-16 16:24] LABS: WBC,URINE TOO MANY TO COUNT /HPF (0-5)
[2017-04-16 16:27] LABS: ANION GAP 13.3 (8-16); CARBON DIOXIDE 29.4 mmol/L (21-32); CREATININE 0.8 mg/dL (0.7-1.3); POTASSIUM 3.7 mmol/L (3.5-5.1)
[2017-04-16 16:33] LABS: ALBUMIN 3.7 g/dL (3.4-5.0); TOTAL BILIRUBIN 0.5 mg/dL (0.0-1.0)
[2017-04-16] MEDS ORDERED: CEFEPIME 500 MG in DEXTROSE 5% 50 ML IV ONE (17:40)
[2017-04-16] MEDS ORDERED: HYDROmorphone PFS 2 MG/ML SYR IVP ONE ×2 (17:40→20:00)
[2017-04-16] MEDS ORDERED: HYDROmorphone PFS 2 MG/ML SYR ONE (17:42)
[2017-04-16] MEDS ORDERED: CEFEPIME 1,000 MG VIAL ONE (17:52)
--- NOTE | 2017-04-16 19:10 | NUR ---
REPORT RECEIVED FROM VLADIMIR NEGRETE
--- NOTE | 2017-04-16 19:13 | NUR ---
Pt report given to VLADIMIR MATHUR. Transfer of care at this time.
[2017-04-16] MEDS ORDERED: metroNIDAZOLE 500 MG/NS PREMIX 100 ML IV ONE ×2 (19:55→20:01)
[2017-04-16] MEDS ORDERED: NACL 0.9% 1,000 ML IV SCH ×2 (20:08)
[2017-04-16] MEDS ORDERED: MORPHINE SULFATE 2 MG/ML SYR IVP PRN (20:10)
[2017-04-16] MEDS ORDERED: ONDANSETRON 4 MG/2 ML VIAL IVP PRN (20:10)
[2017-04-16] MEDS ORDERED: DEXTROSE 50% 50 ML SYR IVP PRN (20:10)
[2017-04-16] MEDS ORDERED: INSULIN LISPRO SLIDING SCALE 100 UNITS/ML VIAL SUBQ PRN (20:10)
[2017-04-16] MEDS ORDERED: HYDROmorphone 1 MG/ML AMP ONE (20:13)
--- NOTE | 2017-04-16 20:54 | NUR ---
Patient will be admitted to care of DR RAMIREZ. Admited to MED/SURG. Will go to [id number]. Belongings list completed. Report to VLADIMIR OTERO.
--- NOTE | 2017-04-16 21:00 | NUR ---
PT ARRIVED VIA GURNEY FROM ER, BUT AMBULATED FROM HALLWAY TO BED WITH STEADY GAIT. RECEIVED REPORT AT BEDSIDE FROM ER NURSE. PT A/OX4, ON ROOM AIR. PT HAS IV TO RIGHT POSTERIOR FOREARM 20G, SL. PT SKIN IS INTACT, BUT THERE IS WHITE DISCOLORATION TO LEFT LOWER EXTREMITY. SAFETY PRECAUTIONS IN PLACE. UPDATED BOARD. VITAL SIGNS WITHIN NORMAL LIMITS, PT DENIES PAIN. PT IN STABLE CONDITION, NO SIGNS OF DISTRESS NOTED. BED IN LOW POSITION, CALL LIGHT WITHIN REACH. WILL CONTINUE TO MONITOR.
[2017-04-16] MEDS: BLOOD GLUCOSE MONITORING 1 DEV DEV FS SCH (21:51)
[2017-04-17] VITALS: BP 139/76
--- NOTE | 2017-04-17 00:25 | NUR ---
VITAL SIGNS WITHIN NORMAL LIMITS, PT C/O 91/0 ABDOMINAL PAIN, WILL MEDICATE ACCORDINGLY. PT IN STABLE CONDITION, NO SIGNS OF DISTRESS NOTED. BED IN LOW POSITION, CALL LIGHT WITHIN REACH. WILL CONTINUE TO MONITOR.
[2017-04-17] MEDS: MORPHINE SULFATE 4 MG/ML SYR IVP PRN ×3 (00:38→15:13)
[2017-04-17] MEDS: metroNIDAZOLE 500 MG/NS PREMIX 100 ML IV SCH ×3 (00:38→12:06)
--- NOTE | 2017-04-17 00:40 | NUR ---
MEDICATED WITH MORPHINE FOR PAIN, PT TOLERATED WELL. PT IN STABLE CONDITION, NO SIGNS OF DISTRESS NOTED. BED IN LOW POSITION, CALL LIGHT WITHIN REACH. WILL CONTINUE TO MONITOR.
[2017-04-17 01:11] VITALS: BP 122/81
[2017-04-17 04:00] VITALS: BP 115/60
--- NOTE | 2017-04-17 04:00 | NUR ---
VITAL SIGNS WITHIN NORMAL LIMITS, PT DENIES PAIN. PT IN STABLE CONDITION, NO SIGNS OF DISTRESS NOTED. BED IN LOW POSITION, CALL LIGHT WITHIN REACH. WILL CONTINUE TO MONITOR.
[2017-04-17] MEDS ORDERED: CEFEPIME 2,000 MG in DEXTROSE 5% 100 ML IV SCH ×2 (06:00→09:00)
[2017-04-17] MEDS: BLOOD GLUCOSE MONITORING 1 DEV DEV FS SCH ×3 (06:37→17:26)
--- NOTE | 2017-04-17 06:37 | NUR ---
PT BLOOD SUGAR 151, NO INSULIN COVERAGE GIVEN BECAUSE PT IS NPO AND PT DOES NOT WANT INSULIN.
[2017-04-17 06:51] LABS: BASOPHILS # (AUTO) 0.4 K/uL (0.00-0.22); BASOPHILS % (AUTO) 4.6 % (0.0-2.0); EOSINOPHILS # (AUTO) 0.3 K/uL (0-0.4); EOSINOPHILS % (AUTO) 3.8 % (0.0-4.0); HEMOGLOBIN 13.7 g/dL (12.0-18.0); LYMPHOCYTES % (AUTO) 25.2 % (20.5-51.1); MEAN CORPUSCULAR HEMOGLOBIN 29 pg (27-31); MEAN CORPUSCULAR HGB CONC 33 g/dL (33-37); MEAN CORPUSCULAR VOLUME 86 fL (80-94); MONOCYTES # (AUTO) 0.5 K/uL (0.8-1.0); MONOCYTES % (AUTO) 6.1 % (1.7-9.3); NEUTROPHILS # (AUTO) 4.7 K/uL (1.8-7.7); NEUTROPHILS % (AUTO) 60.3 % (42.2-75.2); PLATELET COUNT (AUTO) 185 K/uL (140-450); RED BLOOD CELL COUNT(AUTO) 4.79 MIL/uL (4.20-6.10); RED CELL DISTRIBUTION WIDTH 11.9 % (11.6-13.7); WHITE BLOOD COUNT (AUTO) 7.9 K/uL (4.8-10.8)
--- NOTE | 2017-04-17 06:57 | NUR ---
MEDICATED PT WITH MORPHINE FOR C/O 11/01 PAIN. PT TOLERATED WELL. WILL REASSESS BEFORE LEAVING AND ENDORSE IT.
--- NOTE | 2017-04-17 07:35 | NUR ---
ENDORSED PT IN STABLE CONDITION TO DAY SHIFT NURSE FOR CONTINUITY OF CARE.
--- NOTE | 2017-04-17 07:36 | NUR ---
RECEIVED REPORT AT BEDSIDE FOR CONTINUITY OF CARE. PT IS AWAKE AND ORIENTED. NO SIGNS OF DISTRESS. NO COMPLAINTS. INTRODUCED MYSELF AND UPDATED THE BOARD. V/S WITHIN NORMAL RANGE. DENIES PAIN AT THIS TIME. NO COMPLAINTS. SKIN INTACT. LLE WHITE DISCOLORATION. PER MD, FROM DM. REQUESTS FOR SOME ICE CHIPS. ICE CHIPS GIVEN. IV ON R FA 20G SL. WILL CONTINUE TO MONITOR PT. PLAN: DR. NAQVI CONSULT.
[2017-04-17 08:05] LABS: ANION GAP 14.7 (8-16); CARBON DIOXIDE 27.9 mmol/L (21-32); CREATININE 0.8 mg/dL (0.7-1.3); POTASSIUM 3.6 mmol/L (3.5-5.1)
--- NOTE | 2017-04-17 08:53 | NUR ---
PATIENT HAS BEEN SCREENED AND CATEGORIZED HIGH NUTRITION RISK. PATIENT WILL BE SEEN WITHIN 1-2 DAYS OF ADMISSION. 04/16/17-04/17/[address]
[2017-04-17] MEDS ORDERED: CEFEPIME IV SCH (09:00)
[2017-04-17] MEDS ORDERED: NACL 0.9% IV SCH (09:00)
--- NOTE | 2017-04-17 09:24 | NUR ---
ADMINISTERED MORNING MEDS, INCLUDING PAIN MED. PT TOLERATED WELL. WILL CONTINUE TO MONITOR PT.
--- NOTE | 2017-04-17 14:47 | NUR ---
04/17/2017 RD INITIAL ASSESSMENT COMPLETED PLEASE REFER TO NUTRITION ASSESSMENT UNDER CARE ACTIVITY FOR ESTIMATED NUTRITIONAL NEEDS. 1.CONTINUE NPO STATUS MEDICALLY APPROPRIATE. 2.ADVANCE DIET TOLERATED. 3.RD TO FOLLOW-UP IN 3-5 DAYS PATIENT IS MODERATE RISK. YONG STOREY, RD
--- NOTE | 2017-04-17 15:54 | NUR ---
FAXED INITIAL REVIEW TO THE [facility] [phone] PHONE [phone]
[2017-04-17 16:00] VITALS: BP 149/78
[2017-04-17] MEDS ORDERED: LORazepam 1 MG TAB PO PRN (17:10)
--- NOTE | 2017-04-17 17:10 | NUR ---
SPOKE TO DR. JOHNSON RE PT'S CT W/ CONTRAST. PER MD, WAITING ON DR. NAQVI. ONCE HE SEES PT, WILL DECIDE CT W/ CONTRAST IS NECESSARY. NOTIFIED PT. CONSENT SIGNED AND IN CHART.
--- NOTE | 2017-04-17 17:34 | NUR ---
ADMINISTERED ATIVAN. PT C/O ANXIETY. TOLERATED WELL. WILL CONTINUE TO MONITOR PT.
--- NOTE | 2017-04-17 18:25 | NUR ---
DR. NAQVI IS TO CONSULT ON PT. PER MD, D/C AND WILL FOLLOW HIM OUTPT BASIS. ORDERED A FULL LIQ DIET. ISATU, CHARGE NURSE PAGED DR JOHNSON TO NOTIFY HER.
--- NOTE | 2017-04-17 19:20 | NUR ---
ENDORSED PT TO THE NIGHTSHIFT NURSE AT BEDSIDE FOR CONTINUITY OF CARE. PT IN STABLE CONDITION.
--- NOTE | 2017-04-17 19:30 | NUR ---
RECEIVED REPORT FROM DAY SHIFT RN, PATIENT RESTING IN BED, NO S/S OF DISTRESS NOTED, RESPIRATION EVEN AND UNLABORED, INFORMED THE PATIENT THAT HE WOULD BE DISCHARGED TONIGHT, PATIENT IS HAPPY AND CALLING FAMILY MEMBER. CALL LIGHT WITHIN REACH, SAFETY MEASURE ENSURED, WILL PREPARE DISCHARGE INSTRUCTIONS.
--- NOTE | 2017-04-17 20:19 | NUR ---
PATIENT IS DISCHARGED FROM THE UNIT IN STABLE CONDITION.
== END 2017-04-17 20:18 | disposition home or self-care (01) | DRG 244 ==
LOC: MED 13:54 → MTU 20:23
PROVIDERS: ADMIT Hospitalist; ATTEND Hospitalist
DX: K57.32 Diverticulitis of large intestine without perforation or abscess without bleeding (principal); E11.40 Type 2 diabetes mellitus with diabetic neuropathy, unspecified; N32.1 Vesicointestinal fistula; Z68.42 Body mass index [BMI] 45.0-49.9, adult; N30.00 Acute cystitis without hematuria; I10 Essential (primary) hypertension; E66.01 Morbid (severe) obesity due to excess calories; F12.90 Cannabis use, unspecified, uncomplicated; K57.90 Diverticulosis of intestine, part unspecified, without perforation or abscess without bleeding; F41.9 Anxiety disorder, unspecified; G89.29 Other chronic pain; M54.9 Dorsalgia, unspecified; Z88.0 Allergy status to penicillin; Z91.018 Allergy to other foods; Z91.048 Other nonmedicinal substance allergy status; Z79.2 Long term (current) use of antibiotics; Z79.84 Long term (current) use of oral hypoglycemic drugs
CPT/HCPCS: 36415; 80048; 80053; 81001; 82150; 82948; 83605; 83690; 84484; 85025; 87040; 87081; 87086; 87186; 96361; 96365; 96367; 96375; 99285; J0692; J1170; J1815; J2270; J2405; J3490; J7060

== ENCOUNTER 2017-04-20 06:56 | Emergency (ER) | payer OTHER ==
[~2017-04-20] VITALS: Ht 175.3 cm; Wt 149.7 kg
[~2017-04-20 06:56] MED LIST changes: +CEFOTAXIME ONE; +FLUCONAZOLE 200 MG/NS PREMIX 100 ML IV ONE; +LORazepam 1 MG TAB ONE; +LORazepam 2 MG/ML VIAL ONE; +MORPHINE SULFATE 2 MG/ML SYR ONE; +MORPHINE SULFATE 4 MG/ML SYR ONE; +metroNIDAZOLE 500 MG/NS PREMIX 100 ML IV ONE
[2017-04-20 07:00] VITALS: BP 134/63
--- NOTE | 2017-04-20 07:07 | NUR ---
TO LOBBY, A/W BED, AMBER , VSMoe, ERMShira NOTED
--- NOTE | 2017-04-20 07:21 | NUR ---
Pt c/o LLQ abdominal pain x 3 days since last discharge, was diagnosed with diverticulitis and bladder infection. He was D/C, but claimed that he did not received RX for antibiotic and pain. VSS. NAD Addendum: 04/20/17 at 0727 by [email or web address] Pt claims that activities and ADLs worsen pain.
[2017-04-20 09:53] LABS: BASOPHILS # (AUTO) 0.3 K/uL (0.00-0.22); BASOPHILS % (AUTO) 4.6 % (0.0-2.0); EOSINOPHILS # (AUTO) 0.3 K/uL (0-0.4); EOSINOPHILS % (AUTO) 4.5 % (0.0-4.0); HEMATOCRIT 42.2 % (36-52); LYMPHOCYTES # (AUTO) 2.2 K/uL (2.0-11.5); LYMPHOCYTES % (AUTO) 29.4 % (20.5-51.1); MEAN CORPUSCULAR HEMOGLOBIN 29 pg (27-31); MEAN CORPUSCULAR HGB CONC 33 g/dL (33-37); MEAN CORPUSCULAR VOLUME 86 fL (80-94); MONOCYTES # (AUTO) 0.7 K/uL (0.8-1.0); MONOCYTES % (AUTO) 8.6 % (1.7-9.3); NEUTROPHILS # (AUTO) 4.1 K/uL (1.8-7.7); NEUTROPHILS % (AUTO) 52.9 % (42.2-75.2); PLATELET COUNT (AUTO) 181 K/uL (140-450); WHITE BLOOD COUNT (AUTO) 7.6 K/uL (4.8-10.8)
[2017-04-20 09:56] LABS: APPEARANCE,URINE CLEAR (CLEAR); BILIRUBIN,URINE NEGATIVE (NEGATIVE); BLOOD, URINE NEGATIVE (NEGATIVE); COLOR,URINE YELLOW (YELLOW); LEUKOCYTE ESTERASE ,URINE NEGATIVE (NEGATIVE); NITRITE, URINE NEGATIVE (NEGATIVE); UGLUCOSE NEGATIVE (NEGATIVE)
[2017-04-20] MEDS ORDERED: KETOROLAC 60 MG/2 ML VIAL IM ONE (10:00)
[2017-04-20] MEDS ORDERED: ONDANSETRON 4 MG ODT PO ONE (10:00)
[2017-04-20 10:14] LABS: ANION GAP 11.7 (8-16); CREATININE 0.8 mg/dL (0.7-1.3); POTASSIUM 3.7 mmol/L (3.5-5.1)
[2017-04-20 10:23] LABS: ALBUMIN 3.5 g/dL (3.4-5.0); TOTAL BILIRUBIN 0.4 mg/dL (0.0-1.0)
--- NOTE | 2017-04-20 10:45 | NUR ---
Patient discharged with v/s stable. Written and verbal after care instructions given and explained. Patient alert, oriented and verbalized understanding of instructions. Ambulatory with steady gait. All questions addressed prior to discharge. ID band removed. Patient advised to follow up with PMD. Rx of norco, flagyl, cipro given. Patient educated on indication of medication including possible reaction and side effects. Opportunity to ask questions provided and answered.
[2017-04-20 10:47] VITALS: BP 120/89
== END 2017-04-20 10:45 | disposition home or self-care (01) ==
LOC: MED 06:56
DX: R10.9 Unspecified abdominal pain (principal); K57.90 Diverticulosis of intestine, part unspecified, without perforation or abscess without bleeding; Z79.899 Other long term (current) drug therapy; Z79.84 Long term (current) use of oral hypoglycemic drugs; Z88.0 Allergy status to penicillin; Z88.8 Allergy status to other drugs, medicaments and biological substances; Z91.018 Allergy to other foods
CPT/HCPCS: 36415; 80053; 81003; 85025; 96372; 99284; J0698; J1450; J1885; J2060; J2270; J3490; S0119

== ENCOUNTER 2017-06-28 21:02 | Inpatient (IN) | payer OTHER ==
[~2017-06-28] VITALS: Ht 177.8 cm; Wt 147.9 kg
[~2017-06-28 21:02] MED LIST changes: -CEFOTAXIME ONE; -FLUCONAZOLE 200 MG/NS PREMIX 100 ML IV ONE; -LORazepam 1 MG TAB ONE; -LORazepam 2 MG/ML VIAL ONE; -MORPHINE SULFATE 2 MG/ML SYR ONE; -MORPHINE SULFATE 4 MG/ML SYR ONE; -metroNIDAZOLE 500 MG/NS PREMIX 100 ML IV ONE
[2017-06-28 21:10] VITALS: BP 150/98
--- NOTE | 2017-06-28 21:10 | NUR ---
To chair C via w/c.
--- NOTE | 2017-06-28 21:52 | NUR ---
PT AMB TO [facility] W/O ASST, UA CUP GIVEN
[2017-06-28] MEDS ORDERED: MORPHINE SULFATE 4 MG/ML SYR IVP ONE ×2 (21:55→22:50)
[2017-06-28] MEDS ORDERED: ONDANSETRON 4 MG/2 ML VIAL IVP ONE (21:55)
[2017-06-28] MEDS ORDERED: NACL 0.9% 2,000 ML IV ONE (21:55)
--- NOTE | 2017-06-28 21:55 | NUR ---
PT GIVEN MORPHINE IV FOR PAIN. SEE EMAR FOR DETAILS.
--- NOTE | 2017-06-28 22:09 | NUR ---
pt to er room 10
--- NOTE | 2017-06-28 22:10 | NUR ---
PATIENT PRESENTS TO ED WITH ABD. PAIN. PT STATES HISTORY OF PAIN TO ABDOMEN. PT C/O N/V/D; SKIN IS PINK/WARM/DRY; AAOX4 WITH EVEN AND STEADY GAIT; LUNGS CLEAR BL; HR EVEN AND REGULAR; PT DENIES ANY FEVER, CP, SOB, OR COUGH AT THIS TIME; PATIENT STATES PAIN OF 10/10 AT THIS TIME; VSS; PATIENT POSITIONED FOR COMFORT; HOB ELEVATED; BEDRAILS UP X2; BED DOWN. ER MD MADE AWARE OF PT STATUS. PT STATES, PMH OF DIVERTICULITIS, FISTULA TO ABDOMEN/BLADDER.
--- NOTE | 2017-06-28 22:45 | NUR ---
PT STATES PAIN WENT DOWN TO 5/10.
--- NOTE | 2017-06-28 22:45 | NUR ---
PT TAKEN TO CT
--- NOTE | 2017-06-28 22:51 | NUR ---
PRN MORPHINE GIVEN FOR PAIN.
[2017-06-28 22:53] LABS: HEMATOCRIT 43.3 % (36-52); HEMOGLOBIN 14.7 g/dL (12.0-18.0); MEAN CORPUSCULAR HEMOGLOBIN 29 pg (27-31); MEAN CORPUSCULAR HGB CONC 34 g/dL (33-37); MEAN CORPUSCULAR VOLUME 85.5 fL (80-94); PLATELET COUNT (AUTO) 162 K/uL (140-450); RED BLOOD CELL COUNT(AUTO) 5.07 MIL/uL (4.20-6.10)
[2017-06-28 23:07] LABS: ANION GAP 12.1 (8-16); CARBON DIOXIDE 29.6 mmol/L (21-32); CREATININE 0.9 mg/dL (0.7-1.3); POTASSIUM 3.7 mmol/L (3.5-5.1)
[2017-06-28 23:08] LABS: PROTHROMBIN TIME 10.7 secs (10.8-13.4)
[2017-06-28 23:09] LABS: LYMPHOCYTES % (MANUAL) 8 % (20-46); MONOCYTES % (MANUAL) 3 % (5-12)
[2017-06-28] MEDS ORDERED: metroNIDAZOLE 500 MG/NS PREMIX 100 ML IV ONE (23:15)
[2017-06-28] MEDS ORDERED: LEVOFLOXACIN 750 MG/D5W PREMIX 150 ML IV ONE (23:15)
[2017-06-28] MEDS ORDERED: NACL 0.9% 1,000 ML IV ONE (23:15)
[2017-06-28 23:22] LABS: ALBUMIN 3.6 g/dL (3.4-5.0); TOTAL BILIRUBIN 2.5 mg/dL (0.0-1.0)
--- NOTE | 2017-06-28 23:30 | NUR ---
PAIN DOWN TO 0/10. WILL CONTINUE TO OBSERVE.
[2017-06-29 00:20] LABS: APPEARANCE,URINE CLEAR (CLEAR); BILIRUBIN,URINE 2+ (NEGATIVE); BLOOD, URINE NEGATIVE (NEGATIVE); COLOR,URINE YELLOW (YELLOW); LEUKOCYTE ESTERASE ,URINE NEGATIVE (NEGATIVE); NITRITE, URINE NEGATIVE (NEGATIVE); PH,URINE 6.5 (5.0-9.0); UGLUCOSE TRACE (NEGATIVE)
[2017-06-29] MEDS ORDERED: LORazepam 2 MG/ML VIAL IVP PRN (00:35)
[2017-06-29 00:36] LABS: RBC,URINE 0-5 (RARE) /HPF (0-5); WBC,URINE 0-5 (RARE) /HPF (0-5)
[2017-06-29] MEDS ORDERED: DEXTROSE 50% 50 ML SYR IVP PRN (00:45)
--- NOTE | 2017-06-29 01:07 | NUR ---
pt sent to floor with VLADIMIR KIM
--- NOTE | 2017-06-29 01:10 | NUR ---
RECEIVED PATIENT VIA GURNEY FROM ER. PATIENT WITH IV CONNECTED TO HIS RIGHT FA. PATIENT ASLEEP AND DROWSY FROM MEDICATION. ROUTINE ADMISSION DONE AND CARRIED OUT ORDER. FALL PRECAUTION IMPLEMENTED. PLAN OF CARE DISCUSS TO PATIENT. WILL CONTINUE TO MONITOR.
[2017-06-29 01:48] LABS: BARBITURATE, URINE NEG. ng/ml (NEG <=200); BENZODIAZEPINE, URINE NEG. ng/mL (NEG <=200); CANNABINOID, URINE POS. ng/mL (NEG <=50); COCAINE, URINE NEG. ng/mL (NEG <=300); OPIATE, URINE POS. ng/mL (NEG <=2000); PHENCYCLIDINE SCREEN,URINE NEG. ng/mL (NEG <=25)
[2017-06-29] MEDS: NACL 0.9% 1,000 ML IV SCH ×3 (02:25→20:35)
[2017-06-29 04:00] VITALS: BP 148/90
--- NOTE | 2017-06-29 05:05 | NUR ---
SEEN PATIENT ASLEEP IN BED. BED IN LOW POSITION. CALL LIGHT WITHIN REACH.
[2017-06-29] MEDS: metroNIDAZOLE 500 MG/NS PREMIX 100 ML IV SCH ×3 (05:20→20:34)
[2017-06-29] MEDS: MORPHINE SULFATE 4 MG/ML SYR IVP PRN ×3 (05:47→20:35)
[2017-06-29] MEDS: ONDANSETRON 4 MG/2 ML VIAL IVP PRN ×3 (05:48→20:14)
[2017-06-29] MEDS: INSULIN LISPRO SLIDING SCALE 100 UNITS/ML VIAL SUBQ PRN ×4 (06:12→21:29)
--- NOTE | 2017-06-29 07:14 | NUR ---
PATIENT HAS BEEN SCREENED AND CATEGORIZED HIGH NUTRITION RISK. PATIENT WILL BE SEEN WITHIN 1-2 DAYS OF ADMISSION. 06/29/17-06/30/17 ISA ESQUIVEL MS, RDN
--- NOTE | 2017-06-29 07:24 | NUR ---
ENDORSED PATIENT TO AM SHIFT NURSE FOR CONTINUITY OF CARE. PATIENT IN STABLE CONDITION.
--- NOTE | 2017-06-29 07:26 | NUR ---
RECEIVED BEDSIDE REPORT FROM [employer] NURSE. PATIENT IS SLEEPING BUT EASILY AROUSABLE. NO S/SX OF DISTRESS ON ROOM AIR. IV IN R FOREARM 20 INFUSING NS AT 100ML/HR. IV SITE IS CLEAN, DRY AND INTACT. SKIN INTACT. L LOWER LEG REDNESS. ALLERGY BAND IS IN PLACE. DIET IS NPO AT THIS TIME. BED IN LOW POSITION. CALL LIGHT WITHIN REACH. WILL CONTINUE TO MONITOR PATIENT.
[2017-06-29 08:00] VITALS: BP 107/53
[2017-06-29] MEDS: ENOXAPARIN 40 MG/0.4 ML SYR SUBQ SCH (09:00)
--- NOTE | 2017-06-29 09:30 | NUR ---
PATIENT SLEEPING. EASILY AROUSABLE. NO S/SX OF DISTRESS. WILL CONTINUE TO MONITOR PATIENT. BED IN LOW POSITION. CALL LIGHT WITHIN REACH.
--- NOTE | 2017-06-29 11:00 | NUR ---
ASSISTED PATIENT TO THE RESTROOM. PATIENT AMBULATES STEADY. NO S/SX OF DISTRESS. COMPLAINS OF FEELING A LITTLE DIZZY. PATIENT BACK IN BED. BED IN LOW POSITION. CALL LIGHT WITHIN REACH. WILL CONTINUE TO MONITOR PATIENT.
--- NOTE | 2017-06-29 11:14 | NUR ---
06/29/17 RD INITIAL ASSESSMENT COMPLETED PLEASE REFER TO NUTRITION ASSESSMENT UNDER CARE ACTIVITY FOR ESTIMATED NUTRITIONAL NEEDS. RD RECOMMENDATIONS: 1. CONTINUE NPO MEDICALLY APPROPRIATE. 2. IF/WHEN MEDICALLY APPROPRIATE, CONSIDER INITIATING CCHO 60 GM DIET. 3. CONSULT RDN PRN. 4. RD WILL F/U 2-3 DAYS; HIGH RISK. ISA ESQUIVEL MS, RDN
[2017-06-29] MEDS: BLOOD GLUCOSE MONITORING 1 DEV DEV FS SCH ×3 (11:30→20:43)
--- NOTE | 2017-06-29 12:42 | NUR ---
PT SLEEPING SOUNDLY. IV PUMP BEEPING, HIGH PRESSURE. STOPPED AND RESTARTED THE IV PUMP. IVF INFUSING WELL. WILL CONTINUE TO MONITOR PT.
--- NOTE | 2017-06-29 14:38 | NUR ---
PATIENT IS AWAKE, ALERT AND ORIENTEDX4. PATIENT HAS NO COMPLAINTS AT THIS TIME. WILL CONTINUE TO MONITOR PATIENT. BED IN LOW POSITION. CALL LIGHT WITHIN REACH.
[2017-06-29 16:00] VITALS: BP 146/83
--- NOTE | 2017-06-29 17:37 | NUR ---
PATIENT CURRENTLY SLEEPING. NO S/SX OF DISTRESS ON ROOM AIR. BED IN LOW POSITION. CALL LIGHT WITHIN REACH. WILL CONTINUE TO MONITOR PATIENT.
--- NOTE | 2017-06-29 19:21 | NUR ---
GAVE BEDSIDE REPORT TO QUEEN'S COUNSEL NURSE. ENDORSED PATIENT TO QUEEN'S COUNSEL NURSE. PATIENT IS IN STABLE CONDITION.
--- NOTE | 2017-06-29 19:35 | NUR ---
RECEIVED REPORT FROM DAY SHIFT, PATIENT AWAKE ALERT ORIENTED X4, NO S/S OF DISTRESS NOTED, RESPIRATION EVEN AND UNLABORED, IV PATENT AND INTACT, INFUSING NS AT 100ML/HR. PLAN OF CARE DISCUSSED, PATIENT VERBALIZED UNDERSTANDING, CALL LIGHT WITHIN REACH, SAFETY MEASURE ENSURED, WILL CONTINUE TO MONITOR.
--- NOTE | 2017-06-29 20:35 | NUR ---
PATIENT STATED ABDOMINAL PAIN 6/10. PAIN MEDICATION GIVEN ORDERED. PATIENT TOLERATED WELL. SAFETY MEASURE ENSURED, WILL CONTINUE TO MONITOR.
[2017-06-29] MEDS: LEVOFLOXACIN 500 MG/D5W PREMIX 100 ML IV SCH (21:28)
--- NOTE | 2017-06-29 22:40 | NUR ---
PATIENT IS SLEEPING, NO S/S OF DISTRESS NOTED, RESPIRATION EVEN AND UNLABORED, CALL LIGHT WITHIN REACH, SAFETY MEASURE ENSURED, WILL CONTINUE TO MONITOR
[2017-06-29 23:50] VITALS: BP 135/76
--- NOTE | 2017-06-30 00:04 | NUR ---
VITAL SIGNS STABLE, NO S/S OF DISTRESS NOTED, RESPIRATION EVEN AND UNLABORED, CALL LIGHT WITHIN REACH, SAFETY MEASURE ENSURED, WILL CONTINUE TO MONITOR
--- NOTE | 2017-06-30 02:37 | NUR ---
PATIENT IS SLEEPING, NO S/S OF DISTRESS NOTED, RESPIRATION EVEN AND UNLABORED, CALL LIGHT WITHIN REACH, SAFETY MEASURE ENSURED, WILL CONTINUE TO MONITOR.
[2017-06-30] MEDS: metroNIDAZOLE 500 MG/NS PREMIX 100 ML IV SCH ×3 (04:34→21:29)
--- NOTE | 2017-06-30 04:37 | NUR ---
MANSI STATED. PATIENT IS SLEEPING, RESPIRATION EVEN AND UNLABORED, WILL CONTINUE TO MONITOR.
[2017-06-30] MEDS: NACL 0.9% 1,000 ML IV SCH ×2 (06:37→10:42)
[2017-06-30] MEDS: INSULIN LISPRO SLIDING SCALE 100 UNITS/ML VIAL SUBQ PRN (06:38)
[2017-06-30] MEDS: BLOOD GLUCOSE MONITORING 1 DEV DEV FS SCH ×4 (06:39→21:22)
--- NOTE | 2017-06-30 07:11 | NUR ---
ASSUMED CONTINUITY OF CARE. NO SIGNS AND SYMPTOMS OF ACUTE DISTRESS NOTED. INITIAL ASSESSMENT DONE. KEEP COMFORTABLE ON BED. EXPLAINED DIAGNOSIS, PLAN OF CARE, PAIN MANAGEMENT TEACHING, USE OF CALL LIGHT/BED/TV/BATHROOM. VERBALIZED UNDERSTANDING. CALL LIGHT WITHIN REACH.
--- NOTE | 2017-06-30 07:17 | NUR ---
ENDORSED PLAN OF CARE TO DAY SHIFT RN. PATIENT IS IN STABLE CONDITION.
[2017-06-30 07:56] LABS: BASOPHILS % (AUTO) 0.2 % (0.0-2.0); EOSINOPHILS % (AUTO) 0.5 % (0.0-4.0); HEMATOCRIT 39.5 % (36-52); HEMOGLOBIN 13.4 g/dL (12.0-18.0); LYMPHOCYTES # (AUTO) 0.9 K/uL (2.0-11.5); LYMPHOCYTES % (AUTO) 10.3 % (20.5-51.1); MEAN CORPUSCULAR HEMOGLOBIN 29 pg (27-31); MEAN CORPUSCULAR HGB CONC 34 g/dL (33-37); MEAN CORPUSCULAR VOLUME 85.6 fL (80-94); MONOCYTES # (AUTO) 0.9 K/uL (0.8-1.0); MONOCYTES % (AUTO) 9.2 % (1.7-9.3); NEUTROPHILS # (AUTO) 7.4 K/uL (1.8-7.7); NEUTROPHILS % (AUTO) 79.8 % (42.2-75.2); PLATELET COUNT (AUTO) 163 K/uL (140-450); RED BLOOD CELL COUNT(AUTO) 4.62 MIL/uL (4.20-6.10); RED CELL DISTRIBUTION WIDTH 13.3 % (11.6-13.7); WHITE BLOOD COUNT (AUTO) 9.3 K/uL (4.8-10.8)
[2017-06-30 07:59] LABS: CHOL/HDL RATIO 5.6 (1-4.5)
[2017-06-30 08:00] VITALS: BP 149/91
--- NOTE | 2017-06-30 08:00 | NUR ---
Patient's Plan of Care was discussed and reviewed with FOREIGN CAR MECHANIC: NICANOR DE LOS SANTOS. OPAL
[2017-06-30 08:11] LABS: ALBUMIN 2.7 g/dL (3.4-5.0); ANION GAP 13.3 (8-16); CARBON DIOXIDE 26.2 mmol/L (21-32); CREATININE 0.8 mg/dL (0.7-1.3); MAGNESIUM 1.6 mg/dL (1.8-2.4); POTASSIUM 3.5 mmol/L (3.5-5.1); TOTAL BILIRUBIN 4.4 mg/dL (0.0-1.0)
[2017-06-30] MEDS: MORPHINE SULFATE 4 MG/ML SYR IVP PRN ×3 (08:47→21:30)
[2017-06-30] MEDS: LISINOPRIL 10 MG TAB PO SCH (09:17)
[2017-06-30] MEDS: ENOXAPARIN 40 MG/0.4 ML SYR SUBQ SCH (09:19)
[2017-06-30 12:00] VITALS: BP 137/83
--- NOTE | 2017-06-30 12:15 | NUR ---
INSERTED NEW IV ACCESS ON LEFT FOREARM GAUGE #20. REMOVED IV ON RIGHT FOREARM GAUGE 20. TOLERATED WELL.
--- NOTE | 2017-06-30 15:23 | NUR ---
PAGED DR. TAPIA AND SPOKE TO ADVID REGARDING PT. MAG 1.6. LEFT CALL BACK NUMBER.
[2017-06-30] MEDS ORDERED: MAG SULF 2000 MG/WATER PREMIX 50 ML IV SCH (16:00)
[2017-06-30] MEDS: ONDANSETRON 4 MG/2 ML VIAL IVP PRN (16:31)
--- NOTE | 2017-06-30 18:52 | NUR ---
WATCHING TV AT THIS TIME. NO DISCOMFORT NOTED. WILL ENDORSED TO [facility] NURSE.
--- NOTE | 2017-06-30 19:35 | NUR ---
RECEIVED REPORT FROM DAY SHIFT NURSE. PATIENT RESTING IN BED, NO S/S OF DISTRESS NOTED, RESPIRATION EVEN AND UNLABORED, IV PATENT AND INTACT, INFUSING NS AT 100ML/HR. CALL LIGHT WITHIN REACH, SAFETY MEASURE ENSURED, WILL CONTINUE TO MONITOR.
[2017-06-30] MEDS: LEVOFLOXACIN 500 MG/D5W PREMIX 100 ML IV SCH (21:46)
--- NOTE | 2017-06-30 21:46 | NUR ---
BS 169, PATIENT NPO. PATIENT REFUSED HUMALOG. EDUCATION PROVIDED, PATIENT VERBALIZED UNDERSTANDING THE BENEFITS AND COMPLICATIONS. WILL CONTINUE TO MONITOR.
--- NOTE | 2017-06-30 22:40 | NUR ---
DR. TAPIA ORDERED NM HEPATOBILIARY AROUND 1640, THE TECH IS NOT AVAILABLE AT THIS TIME. PAGED DR. ASHFORD REGARDING THE TEST. DR. ASHFORD SAID," IT'S OKAY TO DO THE NM HEPATOBILIARY TOMORROW, KEEP PATIENT NPO." CHARGE NURSE IS AWARE.
--- NOTE | 2017-06-30 23:53 | NUR ---
PATIENT WAS SLEEPING, NO S/S OF DISTRESS NOTED, RESPIRATION EVEN AND UNLABORED, VITAL SIGNS STABLE, CALL LIGHT WITHIN REACH, SAFETY MEASURE ENSURED, WILL CONTINUE TO MONITOR.
[2017-07-01] VITALS: BP 136/90
--- NOTE | 2017-07-01 02:48 | NUR ---
NO CHANGE IN CONDITION, PATIENT IS SLEEPING, NO S/S OF DISTRESS NOTED, RESPIRATION EVEN AND UNLABORED, CALL LIGHT WITHIN REACH, SAFETY MEASURE ENSURED, WILL CONTINUE TO MONITOR.
[2017-07-01] MEDS: NACL 0.9% 1,000 ML IV SCH ×3 (03:41→22:34)
[2017-07-01] MEDS: metroNIDAZOLE 500 MG/NS PREMIX 100 ML IV SCH ×3 (04:04→22:18)
--- NOTE | 2017-07-01 04:07 | NUR ---
DUE FLAGYL STARTED. PATIENT IS SLEEPING, RESPIRATION EVEN AND UNLABORED, NO S/S OF DISTRESS NOTED, WILL CONTINUE TO MONITOR.
[2017-07-01] MEDS: BLOOD GLUCOSE MONITORING 1 DEV DEV FS SCH ×4 (06:34→21:00)
--- NOTE | 2017-07-01 06:35 | NUR ---
BS 167, PATIENT NPO. PATIENT REFUSED HUMALOG. EDUCATION PROVIDED, PATIENT VERBALIZED UNDERSTANDING OF THE BENEFITS AND COMPLICATIONS. WILL CONTINUE TO MONITOR.
[2017-07-01 07:02] LABS: BASOPHILS % (AUTO) 0.2 % (0.0-2.0); EOSINOPHILS # (AUTO) 0.1 K/uL (0-0.4); EOSINOPHILS % (AUTO) 1.7 % (0.0-4.0); HEMATOCRIT 38.8 % (36-52); HEMOGLOBIN 13.3 g/dL (12.0-18.0); LYMPHOCYTES # (AUTO) 1.3 K/uL (2.0-11.5); LYMPHOCYTES % (AUTO) 21.5 % (20.5-51.1); MEAN CORPUSCULAR HEMOGLOBIN 29 pg (27-31); MEAN CORPUSCULAR HGB CONC 34 g/dL (33-37); MEAN CORPUSCULAR VOLUME 85.5 fL (80-94); MONOCYTES # (AUTO) 0.7 K/uL (0.8-1.0); MONOCYTES % (AUTO) 11.8 % (1.7-9.3); NEUTROPHILS # (AUTO) 3.8 K/uL (1.8-7.7); NEUTROPHILS % (AUTO) 64.8 % (42.2-75.2); PLATELET COUNT (AUTO) 172 K/uL (140-450); RED BLOOD CELL COUNT(AUTO) 4.53 MIL/uL (4.20-6.10); RED CELL DISTRIBUTION WIDTH 13.2 % (11.6-13.7); WHITE BLOOD COUNT (AUTO) 5.9 K/uL (4.8-10.8)
--- NOTE | 2017-07-01 07:07 | NUR ---
ENDORSED PLAN OF CARE TO DAY SHIFT RN, PATIENT IS IN STABLE CONDITION.
--- NOTE | 2017-07-01 07:30 | NUR ---
RECEIVED REPORT FROM RIGGING MAN NURSE. PT IS AAOX4, RESTING IN BED, NO S/S OF DISTRESS NOTED, RESPIRATION EVEN AND UNLABORED, IV PATENT AND INTACT, INFUSING NS AT 100ML/HR. PLAN OF CARE DISCUSSED. PT VERBALIZED UNDERSTANDING. UPDATED BOARD. CALL LIGHT WITHIN REACH, SAFETY MEASURE ENSURED, WILL CONTINUE TO MONITOR.
[2017-07-01 07:31] LABS: ALBUMIN 2.7 g/dL (3.4-5.0); CARBON DIOXIDE 24.5 mmol/L (21-32); CREATININE 0.7 mg/dL (0.7-1.3); POTASSIUM 3.5 mmol/L (3.5-5.1); TOTAL BILIRUBIN 2.9 mg/dL (0.0-1.0)
[2017-07-01] MEDS: ONDANSETRON 4 MG/2 ML VIAL IVP PRN (08:47)
[2017-07-01] MEDS: ENOXAPARIN 40 MG/0.4 ML SYR SUBQ SCH (08:52)
[2017-07-01 09:00] VITALS: BP 134/87
[2017-07-01] MEDS: LISINOPRIL 10 MG TAB PO SCH (09:00)
--- NOTE | 2017-07-01 09:17 | NUR ---
NUCLEAR MED CALLED THAT MED WILL BE READY IN THREE HOURS. INFORMED PT THE HIDA SCAN WILL BE DONE AROUND 12 O'CLOCK. PT GETS UPSET AND WANTS PAIN MEDS RIGHT NOW. INFORMED PT THAT IF HE GET MORPHINE RIGHT NOW, HE WILL HAVE TO WAIT FOR 8 HOUR FOR THE HIDA SCAN. PT CHOSE TO GET THE MORPHINE RIGHT NOW.
[2017-07-01] MEDS: MORPHINE SULFATE 4 MG/ML SYR IVP PRN ×3 (09:23→22:31)
--- NOTE | 2017-07-01 09:25 | NUR ---
MADE DR TAPIA AND Shout[employer]out AWARE OF PT'S DECISION.
--- NOTE | 2017-07-01 11:38 | NUR ---
CM NOTE INITIAL REVIEW FAXED TO [facility] [phone] QI PH# [phone] [place] PH# [phone]
--- NOTE | 2017-07-01 11:40 | NUR ---
BLOOD SUGAR 167, PT REFUSED 2 UNITS INSULIN SINCE HE IS NPO.
--- NOTE | 2017-07-01 12:00 | NUR ---
PROVIDED PT WITH MOUTH MOISTURIZER. PT IS RESTING IN BED, TALKING ON THE PHONE. NO S/S OF ACUTE DISTRESS
[2017-07-01] MEDS: INSULIN LISPRO SLIDING SCALE 100 UNITS/ML VIAL SUBQ PRN (12:15)
--- NOTE | 2017-07-01 14:24 | NUR ---
07/01/17 RD FOLLOW UP COMPLETED PLEASE REFER TO NUTRITION ASSESSMENT UNDER CARE ACTIVITY FOR ESTIMATED NUTRITIONAL NEEDS. 1. CONTINUE NPO STATUS MEDICALLY APPROPRIATE. 2. WHEN PT HAS BEEN EVALUATED TO ADVANCE FROM NPO STATUS, INITIATE CCHO [address] TO FOLLOW-UP 2-3 DAYS, HIGH RISK KIMMY NESBITT RD
[2017-07-01 16:00] VITALS: BP 128/75
--- NOTE | 2017-07-01 19:30 | NUR ---
ENDORSED PLAN OF CARE TO PHLEBOTOMY SERVICES REPRESENTATIVE RN, PATIENT IS IN RADIOLOGY FOR HIDA SCAN.
[2017-07-01 20:31] VITALS: BP 145/93
--- NOTE | 2017-07-01 21:00 | NUR ---
[facility] GIRLFRIEND WAITING AT BEDSIDE
--- NOTE | 2017-07-01 22:30 | NUR ---
PATIENT BACK IN ROOM AND RESTING REQUESTING PAIN MEDICATION AND WILL BE MEDICATED PER ORDER
[2017-07-01] MEDS: LEVOFLOXACIN 500 MG/D5W PREMIX 100 ML IV SCH (22:55)
[2017-07-02] MEDS: metroNIDAZOLE 500 MG/NS PREMIX 100 ML IV SCH ×2 (05:30→13:56)
[2017-07-02 06:46] LABS: BASOPHILS % (AUTO) 0.5 % (0.0-2.0); EOSINOPHILS # (AUTO) 0.2 K/uL (0-0.4); EOSINOPHILS % (AUTO) 2.3 % (0.0-4.0); HEMATOCRIT 40.2 % (36-52); HEMOGLOBIN 13.4 g/dL (12.0-18.0); LYMPHOCYTES # (AUTO) 1.6 K/uL (2.0-11.5); LYMPHOCYTES % (AUTO) 23.3 % (20.5-51.1); MEAN CORPUSCULAR HEMOGLOBIN 29 pg (27-31); MEAN CORPUSCULAR HGB CONC 33 g/dL (33-37); MEAN CORPUSCULAR VOLUME 85.7 fL (80-94); MONOCYTES # (AUTO) 0.7 K/uL (0.8-1.0); MONOCYTES % (AUTO) 10.6 % (1.7-9.3); NEUTROPHILS # (AUTO) 4.2 K/uL (1.8-7.7); NEUTROPHILS % (AUTO) 63.3 % (42.2-75.2); PLATELET COUNT (AUTO) 199 K/uL (140-450); RED BLOOD CELL COUNT(AUTO) 4.69 MIL/uL (4.20-6.10); RED CELL DISTRIBUTION WIDTH 13.2 % (11.6-13.7); WHITE BLOOD COUNT (AUTO) 6.7 K/uL (4.8-10.8)
--- NOTE | 2017-07-02 07:21 | NUR ---
HAND OFF REPORT GIVEN TO DAY RN. PATIENT RESTING QUIETLY AT THIS TIME WITHOUT EVIDENCE OF DISTRESS
[2017-07-02 07:24] LABS: ALBUMIN 2.6 g/dL (3.4-5.0); ANION GAP 15.7 (8-16); CARBON DIOXIDE 24.7 mmol/L (21-32); CREATININE 0.7 mg/dL (0.7-1.3); POTASSIUM 3.4 mmol/L (3.5-5.1)
--- NOTE | 2017-07-02 07:30 | NUR ---
RECEIVED REPORT FROM SUPERVISOR RECORDS CHANGE NURSE. PT IS AAOX4, SLEEPING IN BED, AWAKE TO NAME, OX4. NO S/S OF DISTRESS NOTED, RESPIRATION EVEN AND UNLABORED, IV PATENT AND INTACT, INFUSING NS AT 100ML/HR. PLAN OF CARE DISCUSSED. PT VERBALIZED UNDERSTANDING. UPDATED BOARD. CALL LIGHT WITHIN REACH, SAFETY MEASURE ENSURED, WILL CONTINUE TO MONITOR.
[2017-07-02 08:00] VITALS: BP 142/82
[2017-07-02] MEDS: BLOOD GLUCOSE MONITORING 1 DEV DEV FS SCH ×2 (08:18→11:30)
[2017-07-02] MEDS: NACL 0.9% 1,000 ML IV SCH (08:34)
--- NOTE | 2017-07-02 09:15 | NUR ---
PT HAS BEEN SEEN BY DR TAPIA. NO S/S OF ACUTE DISTRESS.
[2017-07-02] MEDS: LISINOPRIL 10 MG TAB PO SCH (09:57)
[2017-07-02] MEDS: MORPHINE SULFATE 4 MG/ML SYR IVP PRN (09:58)
[2017-07-02] MEDS: ONDANSETRON 4 MG/2 ML VIAL IVP PRN (09:58)
[2017-07-02] MEDS: ENOXAPARIN 40 MG/0.4 ML SYR SUBQ SCH (10:13)
[2017-07-02] MEDS ORDERED: LEVO500T2 PO (10:23)
[2017-07-02] MEDS ORDERED: ONDA4TAB PO (10:23)
[2017-07-02] MEDS ORDERED: METR500T1 PO (10:23)
--- NOTE | 2017-07-02 12:40 | NUR ---
PT HAD LUNCH. TOLERATED WELL. DENIES NAUSEA OR VOMITING. NO C/O PAIN AT THIS TIME.
--- NOTE | 2017-07-02 12:59 | NUR ---
CM NOTE CONCURRENT REVIEW FAXED TO [facility] [phone] QI PH# [phone] SEEMA PH# [phone]
--- NOTE | 2017-07-02 14:00 | NUR ---
ACCORDING TO PT, HE HAD A BM AFTER LUNCH.
--- NOTE | 2017-07-02 15:57 | NUR ---
PT DISCHARGED PER MD ORDER. DISCHARGE INSTRUCTIONS AND MED TEACHING GIVEN. PT VERBALIZED UNDERSTANDING. PT'S PCP IS DR LEMUS. MADE PT AWARE HE NEEDS TO FOLLOW UP WITHIN 1 WK OF DISCHARGE. DENIES ABD PAIN AT THIS TIME. IV DC'D, TIP INTACT, PRESSURE APPLIED. PT LEFT IN STABLE CONDITION AND WITH ALL HIS BELONGINGS. PT'S IS HERE TO STOCK CLIPPER PT.
== END 2017-07-02 15:55 | disposition home or self-care (01) ==
LOC: MED 21:02 → MTU 06-29 00:34
PROVIDERS: ADMIT Internal Medicine; ATTEND Internal Medicine
DX: K80.20 Calculus of gallbladder without cholecystitis without obstruction (principal); R65.10 Systemic inflammatory response syndrome (SIRS) of non-infectious origin without acute organ dysfunction; K57.32 Diverticulitis of large intestine without perforation or abscess without bleeding; N32.1 Vesicointestinal fistula; K76.0 Fatty (change of) liver, not elsewhere classified; Z68.42 Body mass index [BMI] 45.0-49.9, adult; E83.42 Hypomagnesemia; E11.9 Type 2 diabetes mellitus without complications; I10 Essential (primary) hypertension; R74.0 Nonspecific elevation of levels of transaminase and lactic acid dehydrogenase [LDH]; E66.01 Morbid (severe) obesity due to excess calories; Z88.8 Allergy status to other drugs, medicaments and biological substances; Z91.018 Allergy to other foods; Z88.0 Allergy status to penicillin; Z79.84 Long term (current) use of oral hypoglycemic drugs
CPT/HCPCS: 36415; 76700; 78223; 80053; 80305; 81001; 82948; 83605; 83690; 83735; 85025; 85610; 85651; 86140; 87040; 87081; 87086; 96365; 96367; 96375; 96376; 99285; J1650; J1815; J1956; J2060; J2270; J2405; J3475; J3490; J7030; Q0092

== ENCOUNTER 2017-09-01 03:45 | Emergency (ER) | payer OTHER ==
[~2017-09-01] VITALS: Ht 175.3 cm; Wt 150.1 kg
[~2017-09-01 03:45] MED LIST changes: -CIPR500T4 PO; +LEVO500T2 PO; -METR250T2 PO; +METR500T1 PO; +ONDA4TAB PO
[2017-09-01 03:50] VITALS: BP 145/90
--- NOTE | 2017-09-01 03:54 | NUR ---
URINE SAMPLE COLLECTED. PT TO BED 11 VIA W/C
--- NOTE | 2017-09-01 03:54 | NUR ---
PATIENT PRESENTS TO ED WITH ABDOMINAL PAIN 10/10 THROUGHOUT X4 QUAD X1/2 HR. PT WAS ASSISTED INTO ED FROM [facility] VIA WHEELCHAIR. PT STATES HE ATE CHINEESE FOOD LAST NIGHT AND WOKE UP FEELING PAIN SIMILAR TO THAT OF WHEN HE HAD GALSTONES. DENIES V/D; SKIN IS PINK/WARM/DRY; AAOX4; LUNGS CLEAR BL; HR EVEN AND REGULAR; PT DENIES ANY FEVER, CP, SOB, OR COUGH AT THIS TIME; PATIENT STATES PAIN OF 10/10 AT THIS TIME; VSS; PATIENT POSITIONED FOR COMFORT; HOB ELEVATED; BEDRAILS UP X2; BED DOWN. ER MD MADE AWARE OF PT STATUS. CONTINUE TO MONITOR.
--- NOTE | 2017-09-01 04:08 | NUR ---
DR GARCÍA AT BEDSIDE WITH PT
[2017-09-01] MEDS ORDERED: KETOROLAC 30 MG/ML VIAL IVP ONE (04:10)
[2017-09-01 04:42] LABS: APPEARANCE,URINE HAZY (CLEAR); BILIRUBIN,URINE NEGATIVE (NEGATIVE); BLOOD, URINE TRACE-L (NEGATIVE); COLOR,URINE YELLOW (YELLOW); LEUKOCYTE ESTERASE ,URINE NEGATIVE (NEGATIVE); NITRITE, URINE NEGATIVE (NEGATIVE); UGLUCOSE 3+ (NEGATIVE)
[2017-09-01 04:44] LABS: BASOPHILS % (AUTO) 0.4 % (0.0-2.0); EOSINOPHILS # (AUTO) 0.2 K/uL (0-0.4); EOSINOPHILS % (AUTO) 2.8 % (0.0-4.0); HEMATOCRIT 42.7 % (36-52); HEMOGLOBIN 14.2 g/dL (12.0-18.0); LYMPHOCYTES # (AUTO) 2.5 K/uL (2.0-11.5); LYMPHOCYTES % (AUTO) 33.9 % (20.5-51.1); MEAN CORPUSCULAR HEMOGLOBIN 29 pg (27-31); MEAN CORPUSCULAR HGB CONC 33 g/dL (33-37); MEAN CORPUSCULAR VOLUME 85.7 fL (80-94); MONOCYTES # (AUTO) 0.6 K/uL (0.8-1.0); MONOCYTES % (AUTO) 7.5 % (1.7-9.3); NEUTROPHILS # (AUTO) 4.1 K/uL (1.8-7.7); NEUTROPHILS % (AUTO) 55.4 % (42.2-75.2); PLATELET COUNT (AUTO) 192 K/uL (140-450); RED BLOOD CELL COUNT(AUTO) 4.98 MIL/uL (4.20-6.10); RED CELL DISTRIBUTION WIDTH 12.8 % (11.6-13.7); WHITE BLOOD COUNT (AUTO) 7.4 K/uL (4.8-10.8)
[2017-09-01 04:53] LABS: RBC,URINE 3-10 (FEW) /HPF (0-5)
[2017-09-01 04:54] LABS: WBC,URINE TOO MANY TO COUNT /HPF (0-5)
[2017-09-01 05:01] LABS: ANION GAP 8.7 (8-16); CARBON DIOXIDE 30.3 mmol/L (21-32)
[2017-09-01 05:02] LABS: ALBUMIN 3.5 g/dL (3.4-5.0); CREATININE 0.9 mg/dL (0.7-1.3); TOTAL BILIRUBIN 0.5 mg/dL (0.0-1.0)
[2017-09-01 06:58] VITALS: BP 135/76
--- NOTE | 2017-09-01 06:58 | NUR ---
Patient discharged with v/s stable. Written and verbal after care instructions given and explained. Patient verbalized understanding. Ambulatory with steady gait. All questions addressed prior to discharge. Advised to follow up with PMD.
== END 2017-09-01 06:58 | disposition home or self-care (01) ==
LOC: MED 03:45
DX: R10.13 Epigastric pain (principal); R10.11 Right upper quadrant pain; E11.9 Type 2 diabetes mellitus without complications; I10 Essential (primary) hypertension; Z79.899 Other long term (current) drug therapy; Z88.0 Allergy status to penicillin; Z91.018 Allergy to other foods
CPT/HCPCS: 36415; 76705; 80053; 81001; 83690; 85025; 87086; 87186; 96372; 99285; J1885; Q0092

== ENCOUNTER 2017-10-26 15:47 | Inpatient (IN) | payer OTHER ==
[~2017-10-26] VITALS: Ht 177.8 cm; Wt 149.7 kg
[2017-10-26 16:01] VITALS: BP 156/113
--- NOTE | 2017-10-26 16:11 | NUR ---
PT AMBULATES TO BED 8
--- NOTE | 2017-10-26 16:14 | NUR ---
Yesi brandon in [facility] - 10/26/17 at 1614 by MED1 PT AMBULATED TO BED 8
--- NOTE | 2017-10-26 16:20 | NUR ---
BIB C/O N/V/D ,ABDOMINAL & BACK PAIN X 4 DAYS. WENT TO URGENT CARE X 3DAYS AGO ; PT STATED " I GOT CIPRO BUT MED DOES NOT HELP". HX: DM,HTN,DIVERTICULOSIS, GALLSTONE, FISTULA DENIES N/V/D; SKIN IS PINK/WARM/DRY; AAOX4 WITH EVEN AND STEADY GAIT; LUNGS CLEAR BL; HR EVEN AND REGULAR; PT DENIES ANY FEVER, CP, SOB, OR COUGH AT THIS TIME; PATIENT STATES PAIN OF 8/10 AT THIS TIME; VSS; PATIENT POSITIONED FOR COMFORT; HOB ELEVATED; BEDRAILS UP X2; BED DOWN. ER MD MADE AWARE OF PT STATUS.
[2017-10-26] MEDS ORDERED: NACL 0.9% 1,000 ML IV ONE (16:37)
[2017-10-26] MEDS ORDERED: NACL 0.9% 1,000 ML IV SCH (16:37)
--- NOTE | 2017-10-26 17:08 | NUR ---
PT LEFT FOR CT VIA GURNY BY Ambassador.
--- NOTE | 2017-10-26 17:18 | NUR ---
PT BACK TO ROOM 8 BY ERNESTO
[2017-10-26 17:19] LABS: HEMATOCRIT 43.7 % (36-52); HEMOGLOBIN 14.8 g/dL (12.0-18.0); MEAN CORPUSCULAR HEMOGLOBIN 29 pg (27-31); MEAN CORPUSCULAR HGB CONC 34 g/dL (33-37); MEAN CORPUSCULAR VOLUME 84.4 fL (80-94); PLATELET COUNT (AUTO) 165 K/uL (140-450); RED BLOOD CELL COUNT(AUTO) 5.18 MIL/uL (4.20-6.10); RED CELL DISTRIBUTION WIDTH 12.8 % (11.6-13.7); WHITE BLOOD COUNT (AUTO) 7.6 K/uL (4.8-10.8)
[2017-10-26 17:25] LABS: APPEARANCE,URINE CLEAR (CLEAR); BILIRUBIN,URINE NEGATIVE (NEGATIVE); BLOOD, URINE 1+ (NEGATIVE); COLOR,URINE YELLOW (YELLOW); LEUKOCYTE ESTERASE ,URINE NEGATIVE (NEGATIVE); NITRITE, URINE NEGATIVE (NEGATIVE); UGLUCOSE 3+ (NEGATIVE)
[2017-10-26 17:35] LABS: ANION GAP 11.6 (8-16); CARBON DIOXIDE 28.1 mmol/L (21-32); CHLORIDE 100 mmol/L (98-107); CREATININE 0.9 mg/dL (0.7-1.3); GFR ARICAN-AMERICAN 123 mL/min (>90); GLUCOSE 270 mg/dL (74-106); POTASSIUM 3.7 mmol/L (3.5-5.1); SODIUM SERUM 136 mmol/L (136-145); UREA NITROGEN, BLOOD 14 mg/dL (7-18)
[2017-10-26 17:39] LABS: LYMPHOCYTES % (MANUAL) 6 % (20-46)
[2017-10-26 17:41] LABS: ALBUMIN 3.5 g/dL (3.4-5.0); AMYLASE 46 U/L (25-115); ASPARTATE AMINOTRANSFERASE 26 U/L (15-37); LIPASE 95 U/L (73-393); MAGNESIUM 1.6 mg/dL (1.8-2.4); TOTAL BILIRUBIN 0.6 mg/dL (0.0-1.0); URIC ACID 4.3 mg/dL (2.6-7.2)
[2017-10-26] MEDS ORDERED: MORPHINE SULFATE 2 MG/ML SYR IM ONE (17:50)
[2017-10-26] MEDS ORDERED: metroNIDAZOLE 500 MG/NS PREMIX 100 ML IV ONE (17:50)
[2017-10-26] MEDS ORDERED: ONDANSETRON 4 MG/2 ML VIAL IVP ONE (17:50)
[2017-10-26 17:59] LABS: ACETONE, SERUM NEGATIVE (NEGATIVE)
[2017-10-26 18:02] LABS: RBC,URINE 3-10 (FEW) /HPF (0-5); WBC,URINE 0-5 (RARE) /HPF (0-5)
[2017-10-26] MEDS ORDERED: MORPHINE SULFATE 4 MG/ML SYR ONE (18:08)
[2017-10-26] MEDS ORDERED: MORPHINE SULFATE 4 MG/ML SYR IVP PRN (18:15)
[2017-10-26] MEDS ORDERED: MORPHINE SULFATE 2 MG/ML SYR IVP PRN (18:15)
[2017-10-26] MEDS ORDERED: MORPHINE SULFATE 2 MG/ML SYR IVP ONE (18:20)
--- NOTE | 2017-10-26 19:00 | NUR ---
PT A0 X4, RA, NO SOB. TRANSFERRED PT TO [facility] 115. REPORT GIVEN TO SEB, PT'S WITH PT. TRANSFERRED BY ERNESTO WITH WILBERT AND RN
[2017-10-26] MEDS: LACTATED RINGERS 1,000 ML IV SCH (19:30)
--- NOTE | 2017-10-26 19:30 | NUR ---
RECEIVED PT FROM SEB RN PT AAOX4 AMBULATORY IV ON LEFT FA INFUSING WELL PT IS MORBID OBESITY WITH DX ACUTE DIVERTICULITIS DENIES PAIN ON ADMISSION PAIN MED PT IS ;ORIENTED TO THE FLOOR CALL LIGHT WITHIN REACH.
[2017-10-26 20:00] VITALS: BP 114/77
[2017-10-26] MEDS ORDERED: ONDANSETRON 4 MG/2 ML VIAL IVP PRN (21:00)
[2017-10-26] MEDS: BLOOD GLUCOSE MONITORING 1 DEV DEV FS SCH (21:00)
[2017-10-26] MEDS ORDERED: ACETAMINOPHEN 325 MG TAB PO PRN (21:00)
[2017-10-26] MEDS ORDERED: DEXTROSE 50% 50 ML SYR IVP PRN (21:15)
[2017-10-26] MEDS ORDERED: LEVOFLOXACIN 500 MG/D5W PREMIX 100 ML IV SCH (21:30)
--- NOTE | 2017-10-26 21:30 | NUR ---
BLOOD SUGAR TEST 204 COVERAGE WITH 4 UNIST SUBQ HUMALOG FOLLOW PROTOCOL
[2017-10-26] MEDS: INSULIN LISPRO SLIDING SCALE 100 UNITS/ML VIAL SUBQ PRN (22:47)
--- NOTE | 2017-10-26 23:30 | NUR ---
PT SLEEPING WELL AFTER PAIN MEDIC GIVEN
[2017-10-27] VITALS: BP 136/77
[2017-10-27] MEDS ORDERED: metroNIDAZOLE 500 MG/NS PREMIX 100 ML IV SCH ×2 (03:00→08:46)
--- NOTE | 2017-10-27 03:00 | NUR ---
PT AWAKE WATCHING TV HE DOES NOT COMPLAINT OF ANY DISCOMFORT AT THIS TIME
[2017-10-27] MEDS: LACTATED RINGERS 1,000 ML IV SCH (03:24)
--- NOTE | 2017-10-27 06:37 | NUR ---
PATIENT HAS BEEN SCREENED AND CATEGORIZED HIGH NUTRITION RISK. PATIENT WILL BE SEEN WITHIN 1-2 DAYS OF ADMISSION. 10/26/17-10/27/17 ISA ESQUIVEL MS, RDN
[2017-10-27] MEDS: BLOOD GLUCOSE MONITORING 1 DEV DEV FS SCH ×2 (06:55→11:48)
[2017-10-27] MEDS: INSULIN LISPRO SLIDING SCALE 100 UNITS/ML VIAL SUBQ PRN ×2 (06:58→12:19)
--- NOTE | 2017-10-27 07:30 | NUR ---
RECEIVED PT REPORT FROM COURT MANAGER RN AT BEDSIDE. PT IS AAOX4, IV 20G NOTED ON LEFT FA, ASYMPTOMATIC, INFUSING WELL. DX ACUTE DIVERTICULITIS. DISCUSSED PLAN OF CARE, PT VERBALIZED UNDERSTANDING. PT C/O ABD PAIN 12/02. WILL ADMINISTER PAIN MED ORDERED. BED IN LOWEST POSITION, BRAKE ON, CALL LIGHT WITHIN REACH.
[2017-10-27 07:43] LABS: BASOPHILS % (AUTO) 0.4 % (0.0-2.0); EOSINOPHILS % (AUTO) 0.9 % (0.0-4.0); HEMATOCRIT 39.7 % (36-52); HEMOGLOBIN 13.6 g/dL (12.0-18.0); LYMPHOCYTES # (AUTO) 1.1 K/uL (2.0-11.5); LYMPHOCYTES % (AUTO) 18.5 % (20.5-51.1); MEAN CORPUSCULAR HEMOGLOBIN 29 pg (27-31); MEAN CORPUSCULAR HGB CONC 34 g/dL (33-37); MEAN CORPUSCULAR VOLUME 85.3 fL (80-94); MONOCYTES # (AUTO) 0.6 K/uL (0.8-1.0); NEUTROPHILS % (AUTO) 70.2 % (42.2-75.2); PLATELET COUNT (AUTO) 144 K/uL (140-450); RED BLOOD CELL COUNT(AUTO) 4.65 MIL/uL (4.20-6.10); RED CELL DISTRIBUTION WIDTH 12.7 % (11.6-13.7); WHITE BLOOD COUNT (AUTO) 5.7 K/uL (4.8-10.8)
[2017-10-27 08:00] VITALS: BP 124/81
[2017-10-27 08:00] LABS: ALBUMIN 3.1 g/dL (3.4-5.0); ANION GAP 12.8 (8-16); CARBON DIOXIDE 27.4 mmol/L (21-32); CREATININE 0.8 mg/dL (0.7-1.3); POTASSIUM 3.2 mmol/L (3.5-5.1); TOTAL BILIRUBIN 0.5 mg/dL (0.0-1.0)
--- NOTE | 2017-10-27 08:19 | NUR ---
PT REFUSED LOVENOX AND STATED HE HAS BEEN WALKING AND PLANNING TO CONTINUE WALK TODAY. RISK AND BENEFIT EXPLAINED. PT STILL REFUSING AT THIS TIME.
[2017-10-27] MEDS ORDERED: LISINOPRIL 10 MG TAB PO SCH (09:00)
[2017-10-27] MEDS ORDERED: ENOXAPARIN 40 MG/0.4 ML SYR SUBQ SCH (09:00)
[2017-10-27] MEDS ORDERED: PANTOPRAZOLE 40 MG INJ VIAL IVP SCH (09:00)
--- NOTE | 2017-10-27 10:00 | NUR ---
10/27/17 RD INITIAL ASSESSMENT COMPLETED PLEASE REFER TO NUTRITION ASSESSMENT UNDER CARE ACTIVITY FOR ESTIMATED NUTRITIONAL NEEDS. RD RECOMMENDATIONS: 1. CONTINUE ON CCHO 60 GM DIET TOLERATED 2. CONSULT RDN PRN. 3. RD WILL F/U 7 DAYS; LOW RISK. ISA ESQUIVEL MS, RDN
[2017-10-27] MEDS ORDERED: HYDROcodone/APAP 5/325 MG 1 TAB TAB PO PRN (11:45)
[2017-10-27] MEDS ORDERED: POTASSIUM CHLORIDE 10 MEQ TABER PO SCH (12:00)
[2017-10-27] MEDS ORDERED: METR250T2 PO (12:08)
[2017-10-27] MEDS ORDERED: CIPR500T4 PO (12:08)
[2017-10-27] MEDS ORDERED: ACET-2869 PO (13:11)
--- NOTE | 2017-10-27 14:35 | NUR ---
PT DISCHARGED PER MD ORDER. DISCHARGE INSTRUCTION AND MEDICATION TEACHING PROVIDED. RX GIVEN TO PT. PT VERBALIZED UNDERSTANDING. MADE PT AWARE OF THAT SHE NEEDS TO FOLLOW UP WITH PCP WITHIN 1-2 WKS OF DISCHARGE. PT SIGNED ALL DISCHARGE PAPER. NO S/S ACUTE DISTRESS. IV DC'D, TIP INTACT, PRESSURE APPLIED. MICHELE ALICEA WHEELED PT TO LOBBY.
--- NOTE | 2017-10-28 14:19 | NUR ---
CM NOTE RETRO ER DR'S NOTES, H&P, DISCHARGE SUMMARY, DISCHARGE INSTRUCTIONS FAXED TO [facility] [phone] QI PH# [phone]
== END 2017-10-27 14:40 | disposition home or self-care (01) | DRG 244 ==
LOC: MED 15:47 → MTU 18:17
PROVIDERS: ADMIT Internal Medicine Pulmonary Disease; ATTEND Internal Medicine Pulmonary Disease
DX: K57.32 Diverticulitis of large intestine without perforation or abscess without bleeding (principal); Z68.42 Body mass index [BMI] 45.0-49.9, adult; I10 Essential (primary) hypertension; Z88.0 Allergy status to penicillin; E11.9 Type 2 diabetes mellitus without complications; E66.9 Obesity, unspecified; Z91.041 Radiographic dye allergy status; E86.9 Volume depletion, unspecified; E87.6 Hypokalemia
CPT/HCPCS: 36415; 80053; 81001; 82009; 82150; 82948; 83605; 83690; 83735; 84550; 85025; 87081; 99285; C9113; J1650; J1815; J1956; J2270; J2405; J3490; J7120

== ENCOUNTER 2017-11-04 02:21 | Emergency (ER) | payer OTHER ==
[~2017-11-04] VITALS: Ht 177.8 cm; Wt 149.7 kg
[~2017-11-04 02:21] MED LIST changes: +ACET-2869 PO; +CIPR500T4 PO; -LEVO500T2 PO; +METR250T2 PO; -METR500T1 PO
[2017-11-04 02:30] VITALS: BP 131/81
--- NOTE | 2017-11-04 02:30 | NUR ---
TO BED # 7 AMBULATORY, REPORT GIVEN TO RAFIQ GILBERT
--- NOTE | 2017-11-04 02:36 | NUR ---
37/M CAME IN ED WITH FAMILY/FRIEND, C/O SHARP LOWER ABD AND R SIDED ABD PAIN, X3 DAYS. PT REPORTS DIZZINESS AND BRIGHT-RED BLOOD IN STOOL FOR 2-3 DAYS. PT DENIES FEVER, N/V/D, DYSURIA. AOX4, AMBULATORY, RR EVEN AND UNLABORED. LUNG SOUNDS CLEAR BL. ABD SOFT ROUND LARGE TENDER, MORBID OBESITY NOTED. HX ASTHMA, DIVERTICULITIS, DM, ANEMIA, FISTULA, ANEMIA, TORN MENISCUS. PT REPORTS TAKING RX CIPRO AND FLAGYL LAST WEEK WHEN SYMPTOMS SHORTLY STARTED. ER MD MADE AWARE.
--- NOTE | 2017-11-04 03:02 | NUR ---
Dr. Pearce evaluating patient at bedside.
[2017-11-04] MEDS ORDERED: KETOROLAC 60 MG/2 ML VIAL IM ONE (03:10)
--- NOTE | 2017-11-04 03:35 | NUR ---
Patient discharged with v/s stable. Written and verbal after care instructions given and explained. Patient alert, oriented and verbalized understanding of instructions. Ambulatory with steady gait. All questions addressed prior to discharge. ID band removed. Patient advised to follow up with PMD. Rx of COLACE, NORCO given. Patient educated on indication of medication including possible reaction and side effects. Opportunity to ask questions provided and answered.
[2017-11-04 03:37] VITALS: BP 144/60
== END 2017-11-04 03:35 | disposition home or self-care (01) ==
LOC: MED 02:21
DX: K57.93 Diverticulitis of intestine, part unspecified, without perforation or abscess with bleeding (principal); J45.909 Unspecified asthma, uncomplicated; E11.9 Type 2 diabetes mellitus without complications; I10 Essential (primary) hypertension; Z88.0 Allergy status to penicillin; Z79.899 Other long term (current) drug therapy; Z79.2 Long term (current) use of antibiotics; Z91.018 Allergy to other foods
CPT/HCPCS: 81002; 96372; 99283; J1885

== ENCOUNTER 2018-02-22 01:37 | Emergency (ER) | payer SELFPAY ==
[~2018-02-22] VITALS: Ht 177.8 cm; Wt 149.7 kg
[~2018-02-22 01:37] MED LIST changes: -ACET-2869 PO; +HYDR-5122 PO
--- NOTE | 2018-02-22 01:37 | NUR ---
PT BIBA BLS TO ER BED 03
[2018-02-22 01:38] VITALS: BP 129/48
--- NOTE | 2018-02-22 01:38 | NUR ---
38/M BIBA FROM HOME FOR EPIGASTRIC PAIN RADIAITING TO LEFT FLANK X 10 MINUTES. BS ACTIVE X4, ABD SOFT, ROUND, -TENDERNESS. DENIES N/V/D, FEVER/CHILLS. PMH: DIVERTICULITIS, DM, HTN, NEUROPATHY, ANEMIA
--- NOTE | 2018-02-22 02:01 | NUR ---
PT TAKEN TO XRAY
--- NOTE | 2018-02-22 03:59 | NUR ---
GAVE REPORT TO VENU GILBERT
[2018-02-22 05:05] VITALS: BP 107/56
== END 2018-02-22 05:05 | disposition home or self-care (01) ==
LOC: MED 01:37
DX: M62.838 Other muscle spasm (principal); J45.909 Unspecified asthma, uncomplicated; E11.9 Type 2 diabetes mellitus without complications; I10 Essential (primary) hypertension; Z79.899 Other long term (current) drug therapy; Z79.84 Long term (current) use of oral hypoglycemic drugs; Z88.0 Allergy status to penicillin
CPT/HCPCS: 74021; 82948; 99283

== ENCOUNTER 2018-04-15 10:04 | Emergency (ER) | payer MEDICAID ==
[~2018-04-15] VITALS: Ht 177.8 cm; Wt 149.7 kg
[2018-04-15 10:12] VITALS: BP 128/67
--- NOTE | 2018-04-15 10:20 | NUR ---
patient to lobby via w/c. awaiting available bed. catalino. rajani.
--- NOTE | 2018-04-15 10:36 | NUR ---
PT BIB WHEELCHAIR TO ER BED 12 FROM XRAY
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
[2018-04-15] MEDS ORDERED: KETOROLAC 30 MG/ML VIAL IVP ONE (12:25)
[2018-04-15] MEDS ORDERED: NACL 0.9% 1,000 ML IV ONE (12:25)
[2018-04-15 13:00] LABS: BASOPHILS # (AUTO) 0.1 K/uL (0.00-0.22); BASOPHILS % (AUTO) 0.8 % (0.0-2.0); EOSINOPHILS # (AUTO) 0.2 K/uL (0-0.4); EOSINOPHILS % (AUTO) 3.1 % (0.0-4.0); HEMOGLOBIN 13.7 g/dL (12.0-18.0); LYMPHOCYTES # (AUTO) 2.5 K/uL (2.0-11.5); LYMPHOCYTES % (AUTO) 34.5 % (20.5-51.1); MEAN CORPUSCULAR HEMOGLOBIN 29 pg (27-31); MEAN CORPUSCULAR HGB CONC 34 g/dL (33-37); MEAN CORPUSCULAR VOLUME 85.8 fL (80-94); MONOCYTES # (AUTO) 0.6 K/uL (0.8-1.0); MONOCYTES % (AUTO) 8.3 % (1.7-9.3); NEUTROPHILS # (AUTO) 3.9 K/uL (1.8-7.7); NEUTROPHILS % (AUTO) 53.3 % (42.2-75.2); PLATELET COUNT (AUTO) 174 K/uL (140-450); RED BLOOD CELL COUNT(AUTO) 4.78 MIL/uL (4.20-6.10); RED CELL DISTRIBUTION WIDTH 12.6 % (11.6-13.7); WHITE BLOOD COUNT (AUTO) 7.4 K/uL (4.8-10.8)
[2018-04-15 13:10] LABS: ALBUMIN 3.5 g/dL (3.4-5.0); ANION GAP 6.3 (8-16); CARBON DIOXIDE 32.7 mmol/L (21-32); CREATININE 0.9 mg/dL (0.7-1.3); TOTAL BILIRUBIN 0.3 mg/dL (0.0-1.0)
[2018-04-15 14:20] VITALS: BP 138/82
--- NOTE | 2018-04-15 14:20 | NUR ---
Patient discharged with v/s stable. Written and verbal after care instructions given and explained. Patient alert, oriented and verbalized understanding of instructions. Ambulatory with steady gait WITH CRUTCHES. All questions addressed prior to discharge. ID band removed. Patient advised to follow up with PMD. Rx of NAPROSYN 375MG, NORCO 5MG-325MG AND MACROBID CAPSULE given. Patient educated on indication of medication including possible reaction and side effects. Opportunity to ask questions provided and answered.
== END 2018-04-15 14:20 | disposition home or self-care (01) ==
LOC: MED 10:04
DX: N39.0 Urinary tract infection, site not specified (principal); S90.31XA Contusion of right foot, initial encounter; E11.9 Type 2 diabetes mellitus without complications; J45.909 Unspecified asthma, uncomplicated; I10 Essential (primary) hypertension; Z79.84 Long term (current) use of oral hypoglycemic drugs; Z79.899 Other long term (current) drug therapy; Z88.0 Allergy status to penicillin; Y00.XXXA Assault by blunt object, initial encounter; Y93.89 Activity, other specified; Y92.524 Gas station as the place of occurrence of the external cause; Y99.0 Civilian activity done for income or pay
CPT/HCPCS: 36415; 73630; 80053; 82948; 85025; 96374; 99284; J1885; J7030

== ENCOUNTER 2018-12-05 02:34 | Emergency (ER) | payer MEDICAID, OTHER ==
[~2018-12-05] VITALS: Ht 177.8 cm; Wt 97.1 kg
[~2018-12-05 02:34] MED LIST changes: -OMEP40EC1 PO; +OMEP40EC24 PO
[2018-12-05 02:37] VITALS: BP 133/89
--- NOTE | 2018-12-05 02:50 | NUR ---
PT AMBULATED TO BED #9
--- NOTE | 2018-12-05 02:53 | NUR ---
Dr. Luciano examining patient.
--- NOTE | 2018-12-05 03:04 | NUR ---
38 Y/O MALE PRESENTS TO ED, C/O LEFT ARM PAIN 07/02. PT STATES PAIN RADIATES TO NECK. PT HAS HX OF HTN NOT COMPLIANT WITH BP MEDS. PT DENIES ANY DIZZINESS. PT STATES USING WRIST BP CUFF AND SAYS IT WAS HIGH. PT VSS. ERMD AWARE. WILL CONTINUE TO MONITOR.
--- NOTE | 2018-12-05 03:14 | NUR ---
EKG PERFORMED AT BEDSIDE
--- NOTE | 2018-12-05 03:31 | NUR ---
X-Ray at bedside.
[2018-12-05 04:44] LABS: BASOPHILS % (AUTO) 0.3 % (0.0-2.0); EOSINOPHILS # (AUTO) 0.2 K/uL (0-0.4); EOSINOPHILS % (AUTO) 3.5 % (0.0-4.0); HEMATOCRIT 45.2 % (36-52); HEMOGLOBIN 15.4 g/dL (12.0-18.0); LYMPHOCYTES # (AUTO) 2.1 K/uL (2.0-11.5); LYMPHOCYTES % (AUTO) 31.9 % (20.5-51.1); MEAN CORPUSCULAR HEMOGLOBIN 29 pg (27-31); MEAN CORPUSCULAR HGB CONC 34 g/dL (33-37); MEAN CORPUSCULAR VOLUME 85.6 fL (80-94); MONOCYTES # (AUTO) 0.5 K/uL (0.8-1.0); MONOCYTES % (AUTO) 8.3 % (1.7-9.3); NEUTROPHILS # (AUTO) 3.6 K/uL (1.8-7.7); PLATELET COUNT (AUTO) 179 K/uL (140-450); RED BLOOD CELL COUNT(AUTO) 5.28 MIL/uL (4.20-6.10); RED CELL DISTRIBUTION WIDTH 12.6 % (11.6-13.7); WHITE BLOOD COUNT (AUTO) 6.5 K/uL (4.8-10.8)
[2018-12-05 04:58] LABS: PROTHROMBIN TIME 9.6 secs (10.8-13.4)
[2018-12-05 05:01] LABS: ANION GAP 12.4 (8-16); CARBON DIOXIDE 29.6 mmol/L (21-32); CREATININE 0.9 mg/dL (0.7-1.3)
[2018-12-05 05:02] LABS: TOTAL BILIRUBIN 0.5 mg/dL (0.0-1.0)
[2018-12-05 05:03] LABS: ALBUMIN 3.5 g/dL (3.4-5.0)
[2018-12-05 05:19] VITALS: BP 135/78
--- NOTE | 2018-12-05 05:19 | NUR ---
PT DISCHARGED WITH PAPERWORK. NO RX PROVIDED. EDUCATED PT REGARDING D/C DIAGNOSIS AND INSTRUCTIONS. PT VERBALIZED UNDERSTANDING OF TEACHING. TOLD PT TO FOLLOW UP WITH PCP AND WHEN TO RETURN TO ED. PT DENIES ANY CHEST PAIN OR SOB. PT VSS. ALL QUESTIONS ANSWERED.
== END 2018-12-05 05:19 | disposition home or self-care (01) ==
LOC: MED 02:34
DX: R07.89 Other chest pain (principal); M79.602 Pain in left arm; I10 Essential (primary) hypertension; E11.40 Type 2 diabetes mellitus with diabetic neuropathy, unspecified; J45.909 Unspecified asthma, uncomplicated; Z79.2 Long term (current) use of antibiotics; Z79.899 Other long term (current) drug therapy; Z79.891 Long term (current) use of opiate analgesic; Z88.0 Allergy status to penicillin
CPT/HCPCS: 36415; 71045; 80053; 83880; 84484; 85025; 85610; 85730; 93005; 99284; Q0092

== ENCOUNTER 2018-12-12 18:00 | Emergency (ER) | payer OTHER ==
[~2018-12-12] VITALS: Ht 165.1 cm; Wt 146.2 kg
[2018-12-12 18:10] VITALS: BP 175/106
--- NOTE | 2018-12-12 18:14 | NUR ---
TRIAGE COMPLETE. MD AWARE OF BP. OKAY TO WAIT IN LOBBY FOR BED IN ED.
--- NOTE | 2018-12-12 20:15 | NUR ---
PATIENT LEFT WITHOUT BEING SEEN BY DR. EMERY. NO FURTHER CARE PROVIDED FOR PATIENT.
--- NOTE | 2018-12-12 20:15 | NUR ---
CALLED FOR PT, NO RESPONSE.
== END 2018-12-12 20:15 | disposition left against medical advice (07) ==
LOC: MED 18:00
DX: R10.9 Unspecified abdominal pain (principal); R11.2 Nausea with vomiting, unspecified; Z53.21 Procedure and treatment not carried out due to patient leaving prior to being seen by health care provider
CPT/HCPCS: 81002

== ENCOUNTER 2019-04-19 09:19 | Emergency (ER) | payer OTHER ==
[~2019-04-19] VITALS: Ht 177.8 cm; Wt 148.3 kg
[2019-04-19 09:49] VITALS: BP 153/58
--- NOTE | 2019-04-19 10:11 | NUR ---
C/O NAUSEA, URINARY BURNING SENSATION, URINARY FREQUENCY, AND LOWER ABDOMINAL PAIN & LOWER BACK PAIN X YESTERDAY. PT REPORTS TENDERNESS TO LOWER AB WITH TOUCH. DENIES VOMITING. VS STABLE. PAIN 12/02. PT ALERT AND AWAKE. MED HX: DIVERTICULOSIS, HTN, FISTULA CONNECTING BOWELS
[2019-04-19 11:05] LABS: APPEARANCE,URINE CLEAR (CLEAR); BILIRUBIN,URINE NEGATIVE (NEGATIVE); BLOOD, URINE NEGATIVE (NEGATIVE); COLOR,URINE YELLOW (YELLOW); LEUKOCYTE ESTERASE ,URINE NEGATIVE (NEGATIVE); NITRITE, URINE NEGATIVE (NEGATIVE); UGLUCOSE 3+ (NEGATIVE)
[2019-04-19 11:15] LABS: RBC,URINE 0-5 /HPF (0-5); WBC,URINE 0-5 /HPF (0-5)
--- NOTE | 2019-04-19 11:45 | NUR ---
PATIENT LEFT WITHOUT BEING SEEN BY DR. NOYOLA. NO FURTHER CARE PROVIDED FOR PATIENT.
[2019-04-21 06:11] LABS: CHLAMYDIA TRACHOMATIS AMP DNA Negative (Negative)
== END 2019-04-19 11:45 | disposition left against medical advice (07) ==
LOC: MED 09:19
DX: R30.0 Dysuria (principal); Z53.21 Procedure and treatment not carried out due to patient leaving prior to being seen by health care provider
CPT/HCPCS: 36415; 81001; 87491; 99281

== ENCOUNTER 2019-07-09 16:13 | Emergency (ER) | payer OTHER ==
[~2019-07-09] VITALS: Ht 172.7 cm; Wt 146.5 kg
[2019-07-09 16:24] VITALS: BP 131/90
--- NOTE | 2019-07-09 16:30 | NUR ---
PATIENT PLACED IN ED 12
--- NOTE | 2019-07-09 16:50 | NUR ---
LIA CHAMORRO AT BEDSIDE
[2019-07-09] MEDS: IBUPROFEN 800 MG TAB PO ONE (17:46)
[2019-07-09] MEDS: FAMOTIDINE 20 MG TAB PO ONE (17:46)
[2019-07-09] MEDS: diphenhydrAMINE 50 MG CAP PO ONE (17:47)
--- NOTE | 2019-07-09 18:00 | NUR ---
PATIENT COMPLAINING OF BURNING SHARP PAIN TO SKIN AREA UNDER RIGHT BREAST RADIATING INTO RIGHT SIDE AND BACK X 3 DAYS. PT WAS COMPLAINING OF REDNESS. NO REDNESS, BLISTERS, OR SWELLING NOTED AT THIS TIME. SKIN INTACT
--- NOTE | 2019-07-09 18:11 | NUR ---
Patient discharged with v/s stable. Written and verbal after care instructions given and explained. Patient alert, oriented and verbalized understanding of instructions. Ambulatory with steady gait. All questions addressed prior to discharge. ID band removed. Patient advised to follow up with PMD. Rx of BENADRYL,LORATADINE, & IBUPROFEN & ACYCLOVIR given. Patient educated on indication of medication including possible reaction and side effects. Opportunity to ask questions provided and answered.
== END 2019-07-09 18:00 | disposition home or self-care (01) ==
LOC: MED 16:13
DX: R21 Rash and other nonspecific skin eruption (principal); L29.8 Other pruritus; J45.909 Unspecified asthma, uncomplicated; E11.9 Type 2 diabetes mellitus without complications; I10 Essential (primary) hypertension; Z88.0 Allergy status to penicillin; Z79.899 Other long term (current) drug therapy; Z79.84 Long term (current) use of oral hypoglycemic drugs
CPT/HCPCS: 82948; 99284; Q0163

== ENCOUNTER 2019-08-24 10:43 | Emergency (ER) | payer OTHER ==
[~2019-08-24] VITALS: Ht 175.3 cm; Wt 148.3 kg
[2019-08-24 10:52] VITALS: BP 123/66
--- NOTE | 2019-08-24 11:00 | NUR ---
AMBULATED TO BED 6
--- NOTE | 2019-08-24 11:10 | NUR ---
c/o shingles-was seen here approx 1 month ago for shingles ,pt aox4, afibrile ,ambulatory , sce,cbs blf, no rt chest lesion noted, soft round abdomen. pmhx dm, bipolar, htn. finished acyclovir
--- NOTE | 2019-08-24 11:10 | NUR ---
dr tolbert at bedside evaluating pt.
[2019-08-24] MEDS ORDERED: HYDROcodone/APAP 5/325 MG 1 TAB TAB PO ONE (11:15)
[2019-08-24] MEDS ORDERED: KETOROLAC 30 MG/ML VIAL IM ONE (11:15)
--- NOTE | 2019-08-24 11:18 | NUR ---
xray at bedside.
--- NOTE | 2019-08-24 11:27 | NUR ---
pt comfortable in bed , rendered care, side rails up x1 and lock.
--- NOTE | 2019-08-24 11:30 | NUR ---
pt went to br to do number 1 ambulating.
--- NOTE | 2019-08-24 11:40 | NUR ---
pt back in bed.
[2019-08-24 11:44] VITALS: BP 123/66
--- NOTE | 2019-08-24 11:45 | NUR ---
Patient discharged with v/s stable. Written and verbal after care instructions given and explained regarding chest wall pain. Patient alert, oriented and verbalized understanding of instructions. Ambulatory with steady gait. All questions addressed prior to discharge. ID band removed. Patient advised to follow up with PMD. Rx of norco and naprosyn given. Patient educated on indication of medication including possible reaction and side effects. Opportunity to ask questions provided and answered.
== END 2019-08-24 11:45 | disposition home or self-care (01) ==
LOC: MED 10:43
DX: R07.89 Other chest pain (principal); E11.9 Type 2 diabetes mellitus without complications; I10 Essential (primary) hypertension; J45.909 Unspecified asthma, uncomplicated; Z88.0 Allergy status to penicillin; Z79.899 Other long term (current) drug therapy
CPT/HCPCS: 71045; 96372; 99283; J1885; Q0092

== ENCOUNTER 2019-09-09 04:49 | Emergency (ER) | payer OTHER ==
[~2019-09-09] VITALS: Ht 175.3 cm; Wt 169.6 kg
[2019-09-09 04:53] VITALS: BP 139/88
--- NOTE | 2019-09-09 04:55 | NUR ---
PT AMBULATED TO BED 7 WITH STEADY GAIT
--- NOTE | 2019-09-09 05:02 | NUR ---
AT BEDSIDE EXAMINING PT
--- NOTE | 2019-09-09 05:06 | NUR ---
39 YEAR OLD MALE COMPLAINS OF RIGHT BREAST AND NIPPLE PAIN X 3 MONTHS. PT STATES HE HAS BEEN HAVING HARD TIME CONTACTING HIS PRIMARY CARE DOCTOR AND OTC MEDS HAVE NOT BEEN WORKING. PT DENIES SOB OR OTHER COMPLAINTS. PT AOX4, BREATHING EVEN AND UNLABORED, SKIN WARM AND DRY. BED IN LOWEST POSITION, LOCKED, BED RAIL UPX1. PMH - DM2, NEUROPATHY, DIVERTICULITIS ALLERGES - PCN
[2019-09-09] MEDS ORDERED: MORPHINE SULFATE 2 MG/ML SYR IM ONE (05:10)
[2019-09-09 05:40] VITALS: BP 133/78
--- NOTE | 2019-09-09 05:40 | NUR ---
Patient discharged with v/s stable. Written and verbal after care instructions about myofascial pain syndrome given and explained. Patient alert, oriented and verbalized understanding of instructions. Ambulatory with steady gait. All questions addressed prior to discharge. ID band removed. Patient advised to follow up with PMD. Rx of tramadol and motrin given. Patient educated on indication of medication including possible reaction and side effects. Opportunity to ask questions provided and answered.
== END 2019-09-09 05:40 | disposition home or self-care (01) ==
LOC: MED 04:49
DX: B02.29 Other postherpetic nervous system involvement (principal); E11.9 Type 2 diabetes mellitus without complications; F17.200 Nicotine dependence, unspecified, uncomplicated; I10 Essential (primary) hypertension; J45.909 Unspecified asthma, uncomplicated; L40.8 Other psoriasis; Z88.0 Allergy status to penicillin; Z79.899 Other long term (current) drug therapy
CPT/HCPCS: 96372; 99283; J2270

== ENCOUNTER 2019-11-18 04:10 | Emergency (ER) | payer OTHER ==
[~2019-11-18] VITALS: Ht 177.8 cm; Wt 144.7 kg
[2019-11-18 04:25] VITALS: BP 149/89
[2019-11-18] MEDS: ONDANSETRON 4 MG/2 ML VIAL IVP ONE (05:00)
[2019-11-18] MEDS: NACL 0.9% 1,000 ML IV ONE (05:00)
[2019-11-18] MEDS: MORPHINE SULFATE 4 MG/ML SYR IVP ONE (05:00)
[2019-11-18 06:13] LABS: APPEARANCE,URINE SL CLOUDY (CLEAR); BILIRUBIN,URINE NEGATIVE (NEGATIVE); BLOOD, URINE 2+ (NEGATIVE); COLOR,URINE YELLOW (YELLOW); LEUKOCYTE ESTERASE ,URINE TRACE (NEGATIVE); NITRITE, URINE POSITIVE (NEGATIVE); UGLUCOSE 3+ (NEGATIVE)
[2019-11-18 06:14] LABS: BASOPHILS # (AUTO) 0.1 K/uL (0.00-0.22); BASOPHILS % (AUTO) 0.9 % (0.0-2.0); EOSINOPHILS # (AUTO) 0.2 K/uL (0-0.4); EOSINOPHILS % (AUTO) 3.5 % (0.0-4.0); HEMATOCRIT 46.2 % (36-52); HEMOGLOBIN 15.6 g/dL (12.0-18.0); LYMPHOCYTES # (AUTO) 2.4 K/uL (2.0-11.5); LYMPHOCYTES % (AUTO) 40.4 % (20.5-51.1); MEAN CORPUSCULAR HEMOGLOBIN 29 pg (27-31); MEAN CORPUSCULAR HGB CONC 34 g/dL (33-37); MEAN CORPUSCULAR VOLUME 87.3 fL (80-94); MONOCYTES # (AUTO) 0.6 K/uL (0.8-1.0); MONOCYTES % (AUTO) 9.7 % (1.7-9.3); NEUTROPHILS # (AUTO) 2.8 K/uL (1.8-7.7); NEUTROPHILS % (AUTO) 45.5 % (42.2-75.2); PLATELET COUNT (AUTO) 183 K/uL (140-450); RED BLOOD CELL COUNT(AUTO) 5.29 MIL/uL (4.20-6.10); RED CELL DISTRIBUTION WIDTH 12.3 % (11.6-13.7); WHITE BLOOD COUNT (AUTO) 6.1 K/uL (4.8-10.8)
[2019-11-18 06:20] LABS: RBC,URINE 11-20 (MOD) /HPF (0-5); WBC,URINE 16-25 (MOD) /HPF (0-5)
[2019-11-18 06:33] LABS: ALBUMIN 4.1 g/dL (3.4-5.0); ANION GAP 13.9 (8-16); CARBON DIOXIDE 26.7 mmol/L (21-32); CREATININE 0.8 mg/dL (0.6-1.3); POTASSIUM 3.6 mmol/L (3.5-5.1); TOTAL BILIRUBIN 0.5 mg/dL (0.0-1.0)
[2019-11-18] MEDS: CIPROFLOXACIN 250 MG TAB PO ONE (06:41)
== END 2019-11-18 06:55 | disposition left against medical advice (07) ==
LOC: MED 04:10
DX: K57.92 Diverticulitis of intestine, part unspecified, without perforation or abscess without bleeding (principal); N39.0 Urinary tract infection, site not specified; E11.9 Type 2 diabetes mellitus without complications; I10 Essential (primary) hypertension; K21.9 Gastro-esophageal reflux disease without esophagitis; L40.9 Psoriasis, unspecified; Z88.0 Allergy status to penicillin; Z79.899 Other long term (current) drug therapy
CPT/HCPCS: 36415; 74176; 80053; 81001; 83690; 85025; 87086; 87186; 96361; 96374; 96375; 99284; J2270; J2405; J7030

== ENCOUNTER 2020-11-20 06:32 | Emergency (ER) | payer OTHER ==
[~2020-11-20] VITALS: Ht 177.8 cm; Wt 140.6 kg
[~2020-11-20 06:32] MED LIST changes: +LISI-486 PO; -LISI10TA11 PO; +METR-520 PO; -METR250T2 PO
[2020-11-20 07:00] VITALS: BP 148/94
--- NOTE | 2020-11-20 07:03 | NUR ---
PT AMBULATED TO LOBBY TO A/W EVALUTION
[2020-11-20 08:18] VITALS: BP 148/94
--- NOTE | 2020-11-20 08:18 | NUR ---
Patient discharged with v/s stable. Written and verbal after care instructions given and explained. Patient alert, oriented and verbalized understanding of instructions. Ambulatory with steady gait. All questions addressed prior to discharge. ID band removed. Patient advised to follow up with PMD. Opportunity to ask questions provided and answered.
== END 2020-11-20 08:18 | disposition home or self-care (01) ==
LOC: MED 06:32
DX: K02.9 Dental caries, unspecified (principal); J45.909 Unspecified asthma, uncomplicated; E11.9 Type 2 diabetes mellitus without complications; K21.9 Gastro-esophageal reflux disease without esophagitis; I10 Essential (primary) hypertension; Z79.2 Long term (current) use of antibiotics; Z79.899 Other long term (current) drug therapy; Z91.018 Allergy to other foods; Z91.048 Other nonmedicinal substance allergy status; Z88.0 Allergy status to penicillin
CPT/HCPCS: 99282

== ENCOUNTER 2020-12-20 01:05 | Emergency (ER) | payer OTHER ==
[~2020-12-20] VITALS: Ht 177.8 cm; Wt 145.1 kg
[2020-12-20 01:09] VITALS: BP 150/90
[2020-12-20] MEDS ORDERED: NACL 0.9% 1,000 ML IV ONE (01:20)
[2020-12-20] MEDS ORDERED: KETOROLAC 30 MG/ML VIAL IVP ONE (01:20)
[2020-12-20] MEDS ORDERED: ONDANSETRON 4 MG/2 ML VIAL IVP ONE (01:20)
[2020-12-20 01:34] LABS: BASOPHILS % (AUTO) 0.4 % (0.0-2.0); EOSINOPHILS # (AUTO) 0.2 K/uL (0-0.4); EOSINOPHILS % (AUTO) 2.4 % (0.0-4.0); HEMATOCRIT 43.7 % (36-52); HEMOGLOBIN 14.9 g/dL (12.0-18.0); LYMPHOCYTES # (AUTO) 1.7 K/uL (2.0-11.5); LYMPHOCYTES % (AUTO) 22.2 % (20.5-51.1); MEAN CORPUSCULAR HEMOGLOBIN 29 pg (27-31); MEAN CORPUSCULAR HGB CONC 34 g/dL (33-37); MONOCYTES # (AUTO) 0.6 K/uL (0.8-1.0); MONOCYTES % (AUTO) 7.1 % (1.7-9.3); NEUTROPHILS # (AUTO) 5.3 K/uL (1.8-7.7); NEUTROPHILS % (AUTO) 67.9 % (42.2-75.2); PLATELET COUNT (AUTO) 181 K/uL (140-450); RED BLOOD CELL COUNT(AUTO) 5.08 MIL/uL (4.20-6.10); RED CELL DISTRIBUTION WIDTH 12.4 % (11.6-13.7); WHITE BLOOD COUNT (AUTO) 7.8 K/uL (4.8-10.8)
[2020-12-20 01:56] LABS: ALBUMIN 3.7 g/dL (3.4-5.0); ANION GAP 11.6 (8-16); CARBON DIOXIDE 28.3 mmol/L (21-32); CREATININE 0.9 mg/dL (0.6-1.3); POTASSIUM 3.9 mmol/L (3.5-5.1); TOTAL BILIRUBIN 0.6 mg/dL (0.0-1.0)
[2020-12-20 02:27] LABS: APPEARANCE,URINE CLOUDY (CLEAR); BILIRUBIN,URINE NEGATIVE (NEGATIVE); BLOOD, URINE NEGATIVE (NEGATIVE); COLOR,URINE YELLOW (YELLOW); LEUKOCYTE ESTERASE ,URINE TRACE (NEGATIVE); NITRITE, URINE NEGATIVE (NEGATIVE); UGLUCOSE 2+ (NEGATIVE)
[2020-12-20 02:38] LABS: RBC,URINE 0-5 /HPF (0-5)
[2020-12-20] MEDS ORDERED: ACET-8386 PO (04:53)
[2020-12-20] MEDS ORDERED: METR500T1 PO (04:53)
[2020-12-20] MEDS ORDERED: CIPR500T4 PO (04:53)
[2020-12-20] MEDS ORDERED: IBUP-2213 PO (04:53)
[2020-12-20 05:12] VITALS: BP 136/83
== END 2020-12-20 05:12 | disposition home or self-care (01) ==
LOC: MED 01:05
DX: K57.32 Diverticulitis of large intestine without perforation or abscess without bleeding (principal); J45.909 Unspecified asthma, uncomplicated; I10 Essential (primary) hypertension; E11.9 Type 2 diabetes mellitus without complications
CPT/HCPCS: 36415; 74177; 80053; 81001; 83690; 85025; 87086; 96361; 96374; 99285; J1885; J7030; Q9967; J2405